=== PATIENT | female | born 1965 | race American Indian/Alaskan Native ===

== ENCOUNTER 2019-08-09 15:41 | Inpatient (IN) | payer MEDICARE, OTHER ==
--- NOTE | 2019-08-09 16:54 | Emergency Department Report ---
ED General Adult HPI - General Chief complaint: Recheck/Abnormal Lab/Rx Stated complaint: ABNORMAL LABS Time Seen by Provider: 08/09/19 16:51 Source: EMS, RN notes reviewed Mode of arrival: Stretcher Limitations: No Limitations - History of Present Illness Initial comments: 54-year-old female with a history of depression and recent admission to [facility] for suicidal ideation presents after patient reportedly had a possible fall and seizure while at [facility] at 11 AM. Per documentation patient was given Ativan while at that facility. According to sitter patient has been refusing vitals as well as any type of lab work and medication while at [facility]. Patient was initially admitted at [facility] after patient was found unresponsive and began to try to attempt suicide while in the ER. Patient currently denies any suicidal or homicidal ideation. Patient also denies any auditory hallucinations at current time. - Related Data Allergies Allergy/AdvReac Type Severity Reaction Status Date / Time No Known Allergies Allergy Verified 08/09/19 16:40 ED Review of Systems ROS: Stated complaint: ABNORMAL LABS Other details as noted in HPI Constitutional: denies: chills, fever Eyes: denies: eye pain, eye discharge, vision change ENT: denies: ear pain, throat pain Respiratory: denies: cough, shortness of breath, wheezing Cardiovascular: denies: chest pain, palpitations Endocrine: no symptoms reported Gastrointestinal: denies: abdominal pain, nausea, diarrhea Genitourinary: denies: urgency, dysuria, discharge Musculoskeletal: denies: back pain, joint swelling, arthralgia Skin: denies: rash, lesions Neurological: denies: headache, weakness, paresthesias Psychiatric: denies: anxiety, depression Hematological/Lymphatic: denies: easy bleeding, easy bruising ED Past Medical Hx - Past Medical History Previous Medical History?: Yes Hx Hypertension: Yes Hx Seizures: Yes Hx Psychiatric Treatment: Yes (bipolar) ED Physical Exam - General Limitations: No Limitations General appearance: alert, other (angry; no acute distress) - Head Head exam: Present: atraumatic, normocephalic, other (abrtasion noted to nasal bridge region) - Eye Eye exam: Present: normal appearance - ENT ENT exam: Present: mucous membranes dry - Neck Neck exam: Present: normal inspection - Respiratory Respiratory exam: Present: normal lung sounds bilaterally. Absent: respiratory distress - Cardiovascular Cardiovascular Exam: Present: regular rate, normal rhythm. Absent: systolic murmur, diastolic murmur, rubs, gallop - GI/Abdominal GI/Abdominal exam: Present: soft, normal bowel sounds - Extremities Exam Extremities exam: Present: normal inspection - Back Exam Back exam: Present: normal inspection - Neurological Exam Neurological exam: Present: alert, oriented X3 - Psychiatric Psychiatric exam: Present: agitated, anxious - Skin Skin exam: Present: warm, dry, intact, normal color. Absent: rash ED Course Vital Signs 08/09/19 18:40 Temperature 98.4 F Pulse Rate 88 Respiratory 16 Rate Blood Pressure 123/80 [Right] O2 Sat by Pulse 95 Oximetry ED Medical Decision Making - Lab Data Result diagrams: 08/09/19 18:37 08/09/19 18:37 - Medical Decision Making Patient has had no subsequent seizure episode while here in emergency department. Patient is ambulatory and appears in no acute distress. Patient is normal left profile normal CT of the head. Patient be discharged to follow-up with PCP and will be discharged to return to [place] accompanied by her sitter as patient is currently on a 1013. - Differential Diagnosis dehydration; anemia; cranial bleed; fracture Critical care attestation.: If time is entered above; I have spent that time in minutes in the direct care of this critically ill patient, excluding procedure time. ED Disposition Clinical Impression: Seizure, Depression Disposition: -01 TO HOME OR SELFCARE Is pt being admited?: No Does the pt Need Aspirin: No Condition: Stable Instructions: Epilepsy (ED) Referrals: PRIMARY MD MAGEN [Primary Care Provider] - 3-5 Days MARIANGEL MAHAJAN MD [Staff Physician] - 3-5 Days Time of Disposition: 21:07 Print Language: HAITIAN
[2019-08-09] MEDS ORDERED: ATIVAN IM STA (17:55)
[2019-08-09] MEDS ORDERED: GEODON IM ONE (17:56)
[2019-08-09] MEDS ORDERED: WATER FOR INJ Sterile (PF) 10 ML ONE (18:20)
[2019-08-09 18:55] LABS: Hematocrit 38.2 % (30.3-42.9); Hemoglobin 12.8 gm/dl (10.1-14.3); Mean Corpuscular HGB Conc 34 % (30-34); Mean Corpuscular Volume 93 fl (79-97); Platelet Count 257 K/mm3 (140-440); Red Blood Count 4.13 M/mm3 (3.65-5.03)
[2019-08-09 19:08] LABS: Alanine Aminotransferase 22 units/L (7-56); Albumin 4.4 g/dL (3.9-5); BUN/Creatinine Ratio 20; Blood Urea Nitrogen 22 mg/dL (7-17); Hemolysis Index 3
--- NOTE | 2019-08-09 19:40 | Cat Scan Report ---
CT head/brain wo con INDICATION / CLINICAL INFORMATION: 54 years Female; seizure. TECHNIQUE: Routine CT head without contrast. All CT scans at this location are performed using CT dos e reduction for ALARA by means of automated exposure control. COMPARISON: None. FINDINGS: BRAIN / INTRACRANIAL CONTENTS: Encephalomalacia seen in the right temporal lobe, which could be relat ed to prior trauma or perhaps old, branch MCA infarct. Otherwise, no acute hemorrhage, mass effect, midline shift, hydrocephalus, or acute, large territoria l infarct. No chronic infarct or focal atrophy. Normal brain volume and ventricular/sulcal size for a ge. No significant white matter abnormality. CRANIOCERVICAL JUNCTION: No significant abnormality. ORBITS: No significant abnormality of visualized orbits. SINUSES / MASTOIDS: No significant abnormality the visualized paranasal sinuses or mastoid air cells. ADDITIONAL FINDINGS: There may be subcutaneous trauma or scarring in the left parietal region. No sig ns of underlying calvarial fracture appreciated. IMPRESSION: 1. No focal mass, hemorrhage, hydrocephalus, or acute, large territorial infarct. Signer Name: Apolinar García MD, III Signed: 08/09/2019 7:35 PM Workstation Name: [id number]
[2019-08-09] MEDS ORDERED: KEPPRA 1,000 MG/NS 0.75% 100ML 1,000 MG/100 ML BAG IV ONE (23:20)
[2019-08-09] MEDS ORDERED: ATIVAN IV ONE (23:20)
--- NOTE | 2019-08-10 00:31 | Cat Scan Report ---
CT head without contrast INDICATION : Headache. TECHNIQUE: Axial imaging performed from the skull apex through the skull base without the use of con trast. All CT examinations performed at this facility utilize dose modulation, iterative reconstruct ion or weight-based dosing, when appropriate, to reduce radiation dose to as low as reasonably achiev able. COMPARISON: None FINDINGS: No acute intracranial hemorrhage is identified. There is prominent encephalomalacia involv ing the right temporal lobe and the right MCA distribution. The ventricles are normal in size without evidence of hydrocephalus. No extra-axial collection identified. The orbits are unremarkable. No par anasal sinus collection. IMPRESSION: No acute intracranial hemorrhage. Prominent encephalomalacia identified involving the rig ht temporal lobe, likely chronic. Signer Name: Guillermo Nicole MD Signed: 08/10/2019 12:27 AM Workstation Name: [id number]
[2019-08-10] MEDS ORDERED: TYLENOL PO PRN (01:10)
[2019-08-10] MEDS ORDERED: ZOFRAN IV PRN (01:10)
[2019-08-10] MEDS ORDERED: SODIUM CHLORIDE FLUSH SYRINGE 10 ML IV PRN (01:10)
--- NOTE | 2019-08-10 01:15 | History and Physical Report ---
History of Present Illness Date of examination: 08/10/19 History of present illness: 54 year old woman with a history of bipolar was admitted to [facility] for suicide ideation. She was sent here to the emergency room because she had a seizure, abrasion on the forehead, 2 mg IM Ativan was given. She was set to be discharg ed from the emergency room when she had another seizure. She stated that she has been on Ativan and Xanax for insomnia which has been continued while at [facility]. Also state that she is been on phenobarbital for years and this was discontinued in the summer, started on phenobarbital for insomnia eview Of Systems: Constitutional: no weight loss, fever, chills Ears, eyes, nose, mouth and throat: no nasal congestion, no nasal discharge, no sinus pressure, blurry vision, diplopia Neck: No neck pain or rigidity. Cardiovascular: No palpitations, chest pain Respiratory: No shortness of breath, cough Gastrointestinal: No hematochezia, abdominal pain Genitourinary : no dysuria, frequency , hematuria Musculoskeletal: no muscle ache , joint pain Integumentary: no rash, no pruritis Neurological: no parathesias, focal weakness Endocrine: no cold or heat intolerance, no polyuria or polydipsia Hematologic/Lymphatic: no easy bruising, no easy bleeding, no gland swelling Allergic/Immunologic: no urticaria, no angioedema. PAST MEDICAL HISTORY: bipolar PAST SURGICAL HISTORY:None FAMILY HISTORY:hypertension, diabetes SOCIAL HISTORY: 4 cigarettes a day, no drugs, alcohol Medications and Allergies Allergies Allergy/AdvReac Type Severity Reaction Status Date / Time No Known Allergies Allergy Verified 08/09/19 16:40 Active Meds: Active Medications Acetaminophen (Tylenol) 650 mg PO Q4H PRN PRN Reason: Pain MILD(1-3)/Fever >100.5/[place] Enoxaparin Sodium (Lovenox) 30 mg SUB-Q QDAY JAMA Lorazepam (Ativan) 2 mg IV Q4H PRN PRN Reason: Seizures Ondansetron HCl (Zofran) 4 mg IV Q8H PRN PRN Reason: Nausea And Vomiting Sodium Chloride (Sodium Chloride Flush Syringe 10 Ml) 10 ml IV BID JAMA Sodium Chloride (Sodium Chloride Flush Syringe 10 Ml) 10 ml IV PRN PRN PRN Reason: LINE FLUSH Zolpidem Tartrate (Ambien) 10 mg PO ONCE ONE Stop: 10/19/19 01:14 Exam - Physical Exam Narrative exam: General Apperance: The patient sitting in bed no acute distress HEENT: Normocephalic, atraumatic. Pupils equally round and reactive to light, extraocular movement intact, and no sclericterus or JVD or thyromegaly or nodule. Neck supple, no carotid bruit, mucous membranes moist, no exudate or e rythema Heart: S1-S2, regular is rhythm Lungs: Clear to auscultation bilaterally, breathing comfortable Abdomen: Positive bowel sounds, soft, nontender, nondistended, no organomegaly Extremities: No edema cyanosis clubbing Skin: no rash, nodule, warm and dry Neuro:CN 2 -12 intact, motor/sensory intact, speech is fluent - Constitutional Vitals: Temp Pulse Resp BP Pulse Ox 98.1 F 84 12 116/60 100 08/09/19 23:49 08/09/19 23:49 08/09/19 23:49 08/09/19 23:49 08/09/19 23:49 Results - Labs CBC & Chem 7: 08/10/19 05:08 08/10/19 05:08 Labs: Abnormal lab results 08/09/19 08/09/19 08/09/19 Range/Units 18:37 18:37 18:37 Chloride 97.7 L (98-107) mmol/L BUN 22 H (7-17) mg/dL Glucose 108 H (65-100) mg/dL Total Creatine Kinase 607 H (30-135) units/L Salicylates < 0.3 L (2.8-20.0) mg/dL Acetaminophen (10.0-30.0) ug/mL 08/09/19 Range/Units 18:37 Chloride (98-107) mmol/L BUN (7-17) mg/dL Glucose (65-100) mg/dL Total Creatine Kinase (30-135) units/L Salicylates (2.8-20.0) mg/dL Acetaminophen < 5.0 L (10.0-30.0) ug/mL - Imaging and Cardiology CT Scan - head: report reviewed Assessment and Plan Assessment Seizure, new onset Bipolar Plan Admit to medicine Start IV Ativan as needed for seizure, status post Keppra Consult neurology, DVT prophylaxis 1013, place with sitter
[2019-08-10] MEDS ORDERED: AMBIEN PO ONE (01:33)
[2019-08-10 05:37] LABS: Basophils % (Auto) 0.4 % (0.0-1.8); Eosinophils # (Auto) 0.1 K/mm3 (0.0-0.4); Eosinophils % (Auto) 1.9 % (0.0-4.3); Hematocrit 35.1 % (30.3-42.9); Hemoglobin 11.8 gm/dl (10.1-14.3); Lymphocytes # (Auto) 1.7 K/mm3 (1.2-5.4); Mean Corpuscular HGB Conc 34 % (30-34); Mean Corpuscular Volume 93 fl (79-97); Monocytes # (Auto) 0.8 K/mm3 (0.0-0.8); Monocytes % (Auto) 14.5 % (0.0-7.3); Platelet Count 236 K/mm3 (140-440); Red Blood Count 3.79 M/mm3 (3.65-5.03); Red Cell Distribution Width 13.9 % (13.2-15.2)
[2019-08-10 05:45] LABS: BUN/Creatinine Ratio 19; Blood Urea Nitrogen 15 mg/dL (7-17); Calcium 8.8 mg/dL (8.4-10.2); Hemolysis Index 11
[2019-08-10] MEDS ORDERED: ATIVAN PO ONE (06:36)
--- NOTE | 2019-08-10 10:33 | Consultation ---
History of Present Illness Consult date: 08/10/19 History of present illness: patient seen for neurology clearance and she is seizure free - and I have reviewed her lab's and the kidney function and potassium are normal she has been on phenobarbital and this was non complaint to and the basis of the seizure... she has small contussion on the left david and left forehead she otherwise has normal exam recommend OK to go back to [facility] Medications and Allergies Allergies Allergy/AdvReac Type Severity Reaction Status Date / Time No Known Allergies Allergy Verified 08/09/19 16:40 Active Meds: Active Medications Acetaminophen (Tylenol) 650 mg PO Q4H PRN PRN Reason: Pain MILD(1-3)/Fever >100.5/[place] Last Admin: 08/10/19 04:57 Dose: 650 mg Documented by: Enoxaparin Sodium (Lovenox) 40 mg SUB-Q QDAY JAMA Levetiracetam 1,000 mg/ (Dextrose) 110 mls @ 400 mls/hr IV Q12H JAMA Lorazepam (Ativan) 2 mg IV Q4H PRN PRN Reason: Seizures Ondansetron HCl (Zofran) 4 mg IV Q8H PRN PRN Reason: Nausea And Vomiting Sodium Chloride (Sodium Chloride Flush Syringe 10 Ml) 10 ml IV BID JAMA Sodium Chloride (Sodium Chloride Flush Syringe 10 Ml) 10 ml IV PRN PRN PRN Reason: LINE FLUSH Physical Examination - Vital Signs Vital Signs: Vital Signs Temp Pulse Resp BP Pulse Ox 98.4 F 88 16 123/80 95 08/09/19 18:40 08/09/19 18:40 08/09/19 18:40 08/09/19 18:40 08/09/19 18:40 Results - Laboratory Findings CBC and BMP: 08/10/19 05:08 08/10/19 05:08 Abnormal Lab Findings: Abnormal Labs 08/09/19 08/09/19 08/09/19 18:37 18:37 18:37 [place] % (Auto) Chloride 97.7 L BUN 22 H Glucose 108 H Total Creatine Kinase 607 H Salicylates < 0.3 L Acetaminophen 08/09/19 08/10/19 08/10/19 18:37 05:08 05:08 [place] % (Auto) 14.5 H Chloride BUN Glucose 109 H Total Creatine Kinase Salicylates Acetaminophen < 5.0 L
[2019-08-10] MEDS: ENOXAPARIN SUB-Q SCH (10:58)
[2019-08-10] MEDS: SODIUM CHLORIDE FLUSH SYRINGE 10 ML IV SCH ×2 (10:59→22:35)
[2019-08-10] MEDS: KEPPRA 1,000 MG in D5W 100 ML IV SCH (11:02)
[2019-08-10] MEDS ORDERED: LIBRIUM PO PRN (11:06)
--- NOTE | 2019-08-10 11:49 | Event Note ---
54-year-old woman with history of mental health disorder, who was being treated at [place]. Presented with seizure which was due to noncompliance with seizure medications. She received Ativan after which seizure broke. She was started on Keppra. She received neurology consult. Patient continued to express how depressed and angry she is. -All her home medications were started. She was given Ativan as needed for anxiety. Case management notified that patient may be discharged back to [place] if they will accept her. Waiting to hear back from [facility] about discharge plan.
[2019-08-10] MEDS ORDERED: XANAX PO PRN (12:35)
[2019-08-10] MEDS ORDERED: AMBIEN PO PRN (15:41)
[2019-08-10] MEDS: NORCO 5/325 PO PRN (17:30)
[2019-08-10] MEDS ORDERED: XANAX ONE (19:17)
[2019-08-10] MEDS ORDERED: CATAPRES ONE (19:17)
[2019-08-10] MEDS: XANAX PO SCH ×2 (19:18→22:34)
[2019-08-10] MEDS: CATAPRES PO SCH ×2 (19:19→22:36)
[2019-08-10] MEDS ORDERED: ATIVAN IV PRN (22:06)
--- NOTE | 2019-08-10 22:23 | Consultation ---
HISTORY OF PRESENT ILLNESS: This is a 54-year-old black female who is seen at [facility]. She is in room 356. She was transferred from another hospital, which was [facility] where she was assessed for having generalized seizure. ER documentation is provided on that issue. I have reviewed over both of her CAT scans of the head, both bony and soft tissue areas and she has an old area of encephalomalacia in the right temporal lobe, which is chronic and in the subcortical and appears to be across the base of the right temporal lobe and is visualized and has a very symmetrical appearance. The overlying skull is normal, indicating this is not the basis of this to not require surgery and comparing the right to the left side, this has a very chronic appearance. This does not appear to be related to a prior stroke. The bony structures in the frontal area are normal. The patient's history is an interesting one in which she was apparently at [facility] and likely had a seizure, but this was related to the fact that she was not compliant with her medication. After presenting to the hospital, she apparently had a CPK of 607 related to the trauma. The toxicology screen did not show any illicit drugs. The blood alcohol level was normal. Salicylate and acetaminophen were both low. The patient's hematocrit was 38. 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 I will make a comment that obviously now that her creatinine is 1.1 and so this was an old issue. Emergency Room note was reviewed and the question of whether she had missed her doses of Keppra and Ativan and a CT scan of the head was unremarkable. She was subsequently admitted and is now currently being observed. PHYSICAL EXAMINATION: Her blood pressure presently is 123/80, pulse rate 80, respirations 18. She is fully alert and oriented. Speech is clear, but she has altered mental process. She thinks today is Monday when it is actually Monday. She follows simple commands. She is up and ambulating. She has a small abrasion on her left knee. Cranial nerves are otherwise intact. IMPRESSION: This patient's history is interesting in that she did not reveal the basis of the old area of encephalomalacia in the left temporal lobe. Clearly, this is probably the basis for seizures. She sees Dr. Yvon Acosta who is an cocoa mill operator at [facility]. She according to her history takes phenobarbital, although from reviewing the Emergency Room note that information was not provided. At this point, I think the patient's neurological examination is otherwise normal. I do not find any focal weakness. She is up and ambulating well. Her thought content is fairly bizarre. She does not have responsible green party with her. Clearly if she was taken to [facility] on 1012, she would be referred back there at this point. I would continue her Keppra therapy and phenobarbital and she certainly does have a legitimate reason for seizures given the fact this is older if scarring in the temporal lobe. Follow up with Dr. Yvon Acosta. I will speak to him in his office on Monday as I am personally familiar with him. IMPRESSION: Seizure and may go back to the [facility]. We follow up at that point. JOB# [id number] FIDE/ROSS
[2019-08-10] MEDS: TOPAMAX PO SCH (22:32)
[2019-08-10] MEDS: AMBIEN PO PRN (22:35)
[2019-08-11] MEDS: KEPPRA 1,000 MG in D5W 100 ML IV SCH (00:06)
[2019-08-11] MEDS: ATIVAN IV PRN ×4 (03:08→14:59)
[2019-08-11] MEDS: XANAX PO SCH ×2 (09:31→21:17)
[2019-08-11] MEDS: TOPAMAX PO SCH ×2 (09:32→21:17)
[2019-08-11] MEDS: SODIUM CHLORIDE FLUSH SYRINGE 10 ML IV SCH ×2 (09:32→21:23)
[2019-08-11] MEDS: DEMADEX PO SCH (09:34)
[2019-08-11] MEDS: COZAAR PO SCH (09:36)
[2019-08-11] MEDS: HCTZ PO SCH (09:37)
[2019-08-11] MEDS: CORGARD PO SCH (09:38)
[2019-08-11] MEDS: ENOXAPARIN SUB-Q SCH (09:39)
[2019-08-11] MEDS ORDERED: HYDROCHLOROTHIAZIDE PO SCH (10:00)
[2019-08-11] MEDS ORDERED: TELMISARTAN PO SCH (10:00)
--- NOTE | 2019-08-11 10:49 | Progress Note ---
Assessment and Plan Assessment and plan: 54-year-old woman with history of bipolar disorder. Who was brought to the hospital after she had a witnessed seizure at [facility]. Seizure was due to noncompliance with antiseizure medications. Patient received Ativan and antiepileptic drugs after which seizures seized. She reports feeling very depressed and anxious. She has been counseled on improved adherence to her medications., Preventative health counseling performed for 17 minutes She was seen by neurology who recommended compliance with seizure medications. She has not expressed any suicidal ideation. She states that if she goes back to [place] she will catch a case. Therefore patient has been on 1013 Diagnosis Status epilepticus Severe depression, bipolar and anxiety which are uncontrolled. DVT prophylaxis with Lovenox She is medically optimized for transfer to [facility] facility History Interval history: Nursing staff states that she has been very unhappy she is been crying and screaming Review of systems Constitutional: No fevers, no malaise, no joint pains CVS: No chest pain, no orthopnea, no pedal edema GI: No abdominal pain, no diarrhea, no vomiting, no constipation Respiratory: No shortness of breath, no wheezing, no coughing Hospitalist Physical - Physical exam Narrative exam: General.: Appears well, no distress, nontoxic HEENT: Moist mucous membranes, extraocular muscles intact, no lymphadenopathy Neck: supple Cardiac: S1-S2 heard Lungs: clear to auscultation bilaterally Abdomen: soft , nontender, nondistended, bowel sounds positive Extremities: no edema clubbing or cyanosis Skin: She has some bruises on her lower extremities and one bruise on her nose, stated that they are from the trauma from the seizure Neurologic: no gross focal deficits Psych: Patient is sad, screaming tearful, inappropriate behavior - Constitutional Vitals: Temp Pulse Resp BP Pulse Ox 97.8 F 96 H 17 117/77 98 08/11/19 04:52 08/11/19 09:38 08/11/19 04:52 08/11/19 09:38 08/10/19 18:42 Results - Labs CBC & Chem 7: 08/10/19 05:08 08/10/19 05:08 Labs: Laboratory Last Values WBC 5.5 K/mm3 (4.5-11.0) 08/10/19 05:08 RBC 3.79 M/mm3 (3.65-5.03) 08/10/19 05:08 Hgb 11.8 gm/dl (10.1-14.3) 08/10/19 05:08 Hct 35.1 % (30.3-42.9) 08/10/19 05:08 MCV 93 fl (79-97) 08/10/19 05:08 MCH 31 pg (28-32) 08/10/19 05:08 MCHC 34 % (30-34) 08/10/19 05:08 RDW 13.9 % (13.2-15.2) 08/10/19 05:08 Plt Count 236 K/mm3 (140-440) 08/10/19 05:08 Lymph % (Auto) 32.0 % (13.4-35.0) 08/10/19 05:08 [place] % (Auto) 14.5 % (0.0-7.3) H 08/10/19 05:08 Eos % (Auto) 1.9 % (0.0-4.3) 08/10/19 05:08 Baso % (Auto) 0.4 % (0.0-1.8) 08/10/19 05:08 Lymph # 1.7 K/mm3 (1.2-5.4) 08/10/19 05:08 [place] # 0.8 K/mm3 (0.0-0.8) 08/10/19 05:08 Eos # 0.1 K/mm3 (0.0-0.4) 08/10/19 05:08 Baso # 0.0 K/mm3 (0.0-0.1) 08/10/19 05:08 Seg Neutrophils % 51.2 % (40.0-70.0) 08/10/19 05:08 Seg Neutrophils # 2.8 K/mm3 (1.8-7.7) 08/10/19 05:08 Sodium 138 mmol/L (137-145) 08/10/19 05:08 Potassium 3.6 mmol/L (3.6-5.0) 08/10/19 05:08 Chloride 100.9 mmol/L (98-107) 08/10/19 05:08 Carbon Dioxide 25 mmol/L (22-30) 08/10/19 05:08 Anion Gap 16 mmol/L 08/10/19 05:08 BUN 15 mg/dL (7-17) 08/10/19 05:08 Creatinine 0.8 mg/dL (0.7-1.2) 08/10/19 05:08 Estimated GFR > 60 ml/min 08/10/19 05:08 BUN/Creatinine Ratio 19 % 08/10/19 05:08 Glucose 109 mg/dL (65-100) H 08/10/19 05:08 Calcium 8.8 mg/dL (8.4-10.2) 08/10/19 05:08 Magnesium 2.20 mg/dL (1.7-2.3) 08/09/19 18:37 Magnesium 2.30 mg/dL (1.7-2.3) 08/09/19 18:37 Total Bilirubin < 0.20 mg/dL (0.1-1.2) 08/09/19 18:37 AST 31 units/L (5-40) 08/09/19 18:37 ALT 22 units/L (7-56) 08/09/19 18:37 Alkaline Phosphatase 100 units/L (35-129) 08/09/19 18:37 Total Creatine Kinase 607 units/L (30-135) H 08/09/19 18:37 Total Protein 7.9 g/dL (6.3-8.2) 08/09/19 18:37 Albumin 4.4 g/dL (3.9-5) 08/09/19 18:37 Albumin/Globulin Ratio 1.3 % 08/09/19 18:37 Salicylates < 0.3 mg/dL (2.8-20.0) L 08/09/19 18:37 Acetaminophen < 5.0 ug/mL (10.0-30.0) L 08/09/19 18:37 Plasma/Serum Alcohol < 0.01 % (0-0.07) 08/09/19 18:37 Active Medications - Current Medications Current Medications: Generic Name Dose Route Start Last Admin Trade Name Freq PRN Reason Stop Dose Admin Acetaminophen 650 mg 08/10/19 01:10 08/10/19 04:57 Tylenol PO 650 mg Q4H PRN Administration Pain MILD(1-3)/Fever >100.5/[place] Acetaminophen/Hydrocodone Bitart 1 each 08/10/19 17:36 08/10/19 17:30 [place] 5/325 PO 1 each Q6H PRN Administration Pain, Moderate (4-6) Alprazolam 2 mg 08/10/19 22:00 08/11/19 09:31 Xanax PO 2 mg BID JAMA Administration Clonidine HCl 0.1 mg 08/10/19 22:00 08/10/19 22:36 Catapres PO Not Given QHS JAMA Enoxaparin Sodium 40 mg 08/10/19 10:00 08/11/19 09:39 Lovenox SUB-Q Not Given QDAY JAMA Hydrochlorothiazide 12.5 mg 08/11/19 10:00 08/11/19 09:37 Hctz PO 12.5 mg QDAY JAMA Administration Lorazepam 2 mg 08/10/19 01:12 08/11/19 07:08 Ativan IV 2 mg Q4H PRN Administration Seizures / AGITATION Losartan Potassium 100 mg 08/11/19 10:00 08/11/19 09:36 Cozaar PO 100 mg QDAY JAMA Administration Nadolol 20 mg 08/11/19 10:00 08/11/19 09:38 Corgard PO 20 mg QDAY JAMA Administration Ondansetron HCl 4 mg 08/10/19 01:10 Zofran IV Q8H PRN Nausea And Vomiting Phenobarbital 64.8 mg 08/10/19 22:00 08/11/19 09:31 Phenobarbital PO 64.8 mg BID JAMA Administration Sodium Chloride 10 ml 08/10/19 10:00 08/11/19 09:32 Sodium Chloride Flush Syringe 10 Ml IV 10 ml BID JAMA Administration Sodium Chloride 10 ml 08/10/19 01:10 Sodium Chloride Flush Syringe 10 Ml IV PRN PRN LINE FLUSH Topiramate 100 mg 08/10/19 22:00 08/11/19 09:32 Topamax PO 100 mg Q12HR JAMA Administration Torsemide 5 mg 08/11/19 10:00 08/11/19 09:34 Demadex PO 5 mg QDAY JAMA Administration Zolpidem Tartrate 10 mg 08/10/19 16:03 08/10/19 22:35 Ambien PO 10 mg QHS PRN Administration Insomnia
--- NOTE | 2019-08-11 11:23 | Consultation ---
History of Present Illness - Reason for Consult Consult date: 08/11/19 Reason for consult: Mental Health Evaluation Requesting physician: WALT BONILLA - Chief Complaint Chief complaint: "Who's the MILK TANKER DRIVER of the hospital" - History of Present Psychiatric Illness 54 y.o. AA female who presented to the ER from [facility] for seizure activity. Today the patient was irritable and delusional during the assessment. Per the staff, the patient tapped paper to her room door and wrote all types of questions directed at the staff and the hospital MILK TANKER DRIVER that I viewed. Her reason for this behavior was not logical. She was asked several times why she was [place] [facility] [place] [facility], she stated that she got into a argument with staff at [facility]. Throughout the interview, she had to be redirected several times to keep her on topic. She mentioned something about being awarded [phone] 000 dollar law suit. She is adamant that this money will be awarded to her soon. She denies denies SI/HI's and AVH's. She denies recreational drug use and alcohol consumption (etoh). Medications and Allergies Allergies Allergy/AdvReac Type Severity Reaction Status Date / Time No Known Allergies Allergy Verified 08/09/19 16:40 Home Medications Medication Instructions Recorded Confirmed Last Taken Type ALPRAZolam [Xanax TAB] 2 mg PO BID 08/10/19 08/10/19 Unknown History Nadolol [Corgard] 20 mg PO QDAY 08/10/19 08/10/19 Unknown History PHENobarbital [Phenobarbital] 64.8 mg PO BID 08/10/19 08/10/19 Unknown History Telmisartan/Hydrochlorothiazid 80 mg PO QDAY 08/10/19 08/10/19 Unknown History [Telmisartan-Hctz 80-12.5 mg Tb] Topiramate [Topamax] 100 mg PO BID 08/10/19 08/10/19 Unknown History Torsemide [Demadex] 5 mg PO DAILY 08/10/19 08/10/19 Unknown History Zolpidem [Ambien] 12.5 mg PO QHS 08/10/19 08/10/19 Unknown History cloNIDine [Catapres] 0.1 mg PO QHS 08/10/19 08/10/19 Unknown History levETIRAcetam [Keppra TAB] 1,000 mg PO BID #60 tab 10/19/19 Unknown Rx Desvenlafaxine Succinate [Pristiq] 08/11/19 Unknown History Simvastatin 08/11/19 Unknown History Active Meds: Active Medications Acetaminophen (Tylenol) 650 mg PO Q4H PRN PRN Reason: Pain MILD(1-3)/Fever >100.5/[place] Last Admin: 08/10/19 04:57 Dose: 650 mg Documented by: Acetaminophen/Hydrocodone Bitart ([place] 5/325) 1 each PO Q6H PRN PRN Reason: Pain, Moderate (4-6) Last Admin: 08/10/19 17:30 Dose: 1 each Documented by: Alprazolam (Xanax) 2 mg PO BID [facility] Last Admin: 08/11/19 09:31 Dose: 2 mg Documented by: Clonidine HCl (Catapres) 0.1 mg PO QHS [facility] Last Admin: 08/10/19 22:36 Dose: Not Given Documented by: Enoxaparin Sodium (Lovenox) 40 mg SUB-Q QDAY [facility] Last Admin: 08/11/19 09:39 Dose: Not Given Documented by: Hydrochlorothiazide (Hctz) 12.5 mg PO QDAY [facility] Last Admin: 08/11/19 09:37 Dose: 12.5 mg Documented by: Lorazepam (Ativan) 2 mg IV Q4H PRN PRN Reason: Seizures / AGITATION Last Admin: 08/11/19 07:08 Dose: 2 mg Documented by: Losartan Potassium (Cozaar) 100 mg PO QDAY [facility] Last Admin: 08/11/19 09:36 Dose: 100 mg Documented by: Nadolol (Corgard) 20 mg PO QDAY [facility] Last Admin: 08/11/19 09:38 Dose: 20 mg Documented by: Ondansetron HCl (Zofran) 4 mg IV Q8H PRN PRN Reason: Nausea And Vomiting Phenobarbital (Phenobarbital) 64.8 mg PO BID [facility] Last Admin: 08/11/19 09:31 Dose: 64.8 mg Documented by: Sodium Chloride (Sodium Chloride Flush Syringe 10 Ml) 10 ml IV BID [facility] Last Admin: 08/11/19 09:32 Dose: 10 ml Documented by: Sodium Chloride (Sodium Chloride Flush Syringe 10 Ml) 10 ml IV PRN PRN PRN Reason: LINE FLUSH Topiramate (Topamax) 100 mg PO Q12HR [facility] Last Admin: 08/11/19 09:32 Dose: 100 mg Documented by: Torsemide (Demadex) 5 mg PO QDAY [facility] Last Admin: 08/11/19 09:34 Dose: 5 mg Documented by: Zolpidem Tartrate (Ambien) 10 mg PO QHS PRN PRN Reason: Insomnia Last Admin: 08/10/19 22:35 Dose: 10 mg Documented by: Past psychiatric history - Past Medical History Past Medical History: hypertension, seizures Past Surgical History: No surgical history - past Psychiatric treatment and history psychiatric treatment history: Hx of Bipolar DO per the patient. Unable to obtain a fam psy hx. - Social History Social history: lives with family Mental Status Exam - Vital signs Last Vital Signs Temp 97.8 F 08/11/19 04:52 Pulse 96 H 08/11/19 09:38 Resp 17 08/11/19 04:52 BP 117/77 08/11/19 09:38 Pulse Ox 98 08/10/19 18:42 - Exam Narrative exam: MSE: Appearance: disheveled, in hospital attire Behavior: regular eye contact Speech: regular rate and loud tone Mood: irritable Affect: congruent to mood Thought Process: circumstantial Thought Content: denies SI/HI's and AVH's, delusional Motor Activity: lying in bed Cognition: A/O x 3 Insight: poor Judgment: poor Results Result Diagrams: 08/10/19 05:08 08/10/19 05:08 All other labs normal. Assessment and Plan Assessment and plan: Impression. Unspecified Mood DO with psy features. Today the patient was irritable and delusional during the assessment. Pending UDS. DDx: Bipolar DO, SCAD Recommendation/Plan: Start Zyprexa 5 mg PO HS for mood/psyhcosis, Attempted to discuss possible metabolic side effects of Zyprexa with the patient. Baseline A1c/Lipid Panel ordered for the AM. Don't administer benzos and narcotic concurrently. Dispo: The patient will be referred to inpatient psy services once medically clear. Staffed with Dr Susu Cisneros.
[2019-08-11] MEDS ORDERED: DESVENLAFAXINE SUCCINATE 100 MG PO SCH (12:45)
[2019-08-11] MEDS: NORCO 5/325 PO PRN (14:44)
[2019-08-11] MEDS: HALDOL IM PRN (17:37)
[2019-08-11] MEDS: AMBIEN PO PRN (21:16)
[2019-08-11] MEDS: CATAPRES PO SCH (21:21)
[2019-08-11] MEDS ORDERED: PRAVACHOL PO SCH (22:00)
[2019-08-11] MEDS ORDERED: NON-FORMULARY (Simvastatin [Simvastatin] 20 MG) PO SCH (22:00)
[2019-08-12 02:07] LABS: Amphetamine Screen,Urine PRESUMPTIVE NEGATIVE; Cannabinoid Screen,Urine PRESUMPTIVE NEGATIVE; Cocaine Screen,Urine PRESUMPTIVE NEGATIVE; Methadone Screen,Urine PRESUMPTIVE NEGATIVE; Opiate Screen,Urine PRESUMPTIVE NEGATIVE
[2019-08-12 02:46] LABS: Benzodiazepines Screen,Urine PRESUMPTIVE POSITIVE
[2019-08-12 05:20] VITALS: BP 91/55
[2019-08-12] MEDS: HALDOL IM PRN (08:17)
[2019-08-12 08:27] LABS: Chol/HDL Ratio 5.68 %
[2019-08-12] MEDS: COZAAR PO SCH (09:59)
[2019-08-12] MEDS: DEMADEX PO SCH (09:59)
[2019-08-12] MEDS: ENOXAPARIN SUB-Q SCH (09:59)
[2019-08-12] MEDS: HCTZ PO SCH (09:59)
[2019-08-12] MEDS: CORGARD PO SCH (09:59)
[2019-08-12] MEDS: SODIUM CHLORIDE FLUSH SYRINGE 10 ML IV SCH (10:00)
[2019-08-12] MEDS: XANAX PO SCH (10:00)
[2019-08-12] MEDS: TOPAMAX PO SCH (10:00)
--- NOTE | 2019-08-12 10:18 | Progress Note ---
Assessment and Plan Assessment and plan: 54-year-old woman with history of bipolar disorder. Who was brought to the hospital after she had a witnessed seizure at [facility]. Seizure was due to noncompliance with antiseizure medications. Patient received Ativan and antiepileptic drugs after which seizures seized. She reports feeling very depressed and anxious. She has been counseled on improved adherence to her medications., Preventative health counseling performed for 17 minutes She was seen by neurology who recommended compliance with seizure medications. She has not expressed any suicidal ideation. She states that she will catch a case if she does not get what she wants. Therefore patient has been on 1013 -Patient remains paranoid delusional and aggressive. 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 She is convinced the nurses are trying to poison her and her sneaking pills into her drinks, and giving her the wrong pill in order to drug her Diagnosis Status epilepticus Severe depression, bipolar and anxiety which are uncontrolled. DVT prophylaxis with Lovenox She [facility] History Interval history: Nursing staff states that she has been very unhappy she is been crying and screaming She has been paranoid and delusional. States that she is a spy who learn how to speaks Farsi and 15 minutes Review of systems Constitutional: No fevers, no malaise, no joint pains CVS: No chest pain, no orthopnea, no pedal edema GI: No abdominal pain, no diarrhea, no vomiting, no constipation Respiratory: No shortness of breath, no wheezing, no coughing Hospitalist Physical - Physical exam Narrative exam: General.: Appears well, no distress, nontoxic HEENT: Moist mucous membranes, extraocular muscles intact, no lymphadenopathy Neck: supple Cardiac: S1-S2 heard Lungs: clear to auscultation bilaterally Abdomen: soft , nontender, nondistended, bowel sounds positive Extremities: no edema clubbing or cyanosis Skin: She has some bruises on her lower extremities and one bruise on her nose, stated that they are from the trauma from the seizure Neurologic: no gross focal deficits Psych: Patient is sad, screaming tearful, inappropriate behavior, she is delusional and paranoid - Constitutional Vitals: Temp Pulse Resp BP Pulse Ox 97.5 F L 67 20 91/55 94 08/12/19 05:15 08/12/19 05:15 08/12/19 05:15 08/12/19 05:15 08/12/19 05:15 Results - Labs CBC & Chem 7: 08/10/19 05:08 08/10/19 05:08 Labs: Laboratory Last Values WBC 5.5 K/mm3 (4.5-11.0) 08/10/19 05:08 RBC 3.79 M/mm3 (3.65-5.03) 08/10/19 05:08 Hgb 11.8 gm/dl (10.1-14.3) 08/10/19 05:08 Hct 35.1 % (30.3-42.9) 08/10/19 05:08 MCV 93 fl (79-97) 08/10/19 05:08 MCH 31 pg (28-32) 08/10/19 05:08 MCHC 34 % (30-34) 08/10/19 05:08 RDW 13.9 % (13.2-15.2) 08/10/19 05:08 Plt Count 236 K/mm3 (140-440) 08/10/19 05:08 Lymph % (Auto) 32.0 % (13.4-35.0) 08/10/19 05:08 [place] % (Auto) 14.5 % (0.0-7.3) H 08/10/19 05:08 Eos % (Auto) 1.9 % (0.0-4.3) 08/10/19 05:08 Baso % (Auto) 0.4 % (0.0-1.8) 08/10/19 05:08 Lymph # 1.7 K/mm3 (1.2-5.4) 08/10/19 05:08 [place] # 0.8 K/mm3 (0.0-0.8) 08/10/19 05:08 Eos # 0.1 K/mm3 (0.0-0.4) 08/10/19 05:08 Baso # 0.0 K/mm3 (0.0-0.1) 08/10/19 05:08 Seg Neutrophils % 51.2 % (40.0-70.0) 08/10/19 05:08 Seg Neutrophils # 2.8 K/mm3 (1.8-7.7) 08/10/19 05:08 Sodium 138 mmol/L (137-145) 08/10/19 05:08 Potassium 3.6 mmol/L (3.6-5.0) 08/10/19 05:08 Chloride 100.9 mmol/L (98-107) 08/10/19 05:08 Carbon Dioxide 25 mmol/L (22-30) 08/10/19 05:08 Anion Gap 16 mmol/L 08/10/19 05:08 BUN 15 mg/dL (7-17) 08/10/19 05:08 Creatinine 0.8 mg/dL (0.7-1.2) 08/10/19 05:08 Estimated GFR > 60 ml/min 08/10/19 05:08 BUN/Creatinine Ratio 19 % 08/10/19 05:08 Glucose 109 mg/dL (65-100) H 08/10/19 05:08 Hemoglobin A1c 5.8 % (4-6) 08/12/19 08:04 Calcium 8.8 mg/dL (8.4-10.2) 08/10/19 05:08 Magnesium 2.20 mg/dL (1.7-2.3) 08/09/19 18:37 Magnesium 2.30 mg/dL (1.7-2.3) 08/09/19 18:37 Total Bilirubin < 0.20 mg/dL (0.1-1.2) 08/09/19 18:37 AST 31 units/L (5-40) 08/09/19 18:37 ALT 22 units/L (7-56) 08/09/19 18:37 Alkaline Phosphatase 100 units/L (35-129) 08/09/19 18:37 Total Creatine Kinase 607 units/L (30-135) H 08/09/19 18:37 Total Protein 7.9 g/dL (6.3-8.2) 08/09/19 18:37 Albumin 4.4 g/dL (3.9-5) 08/09/19 18:37 Albumin/Globulin Ratio 1.3 % 08/09/19 18:37 Triglycerides 311 mg/dL (2-149) H 08/12/19 08:04 Cholesterol 216 mg/dL (50-199) H 08/12/19 08:04 LDL Cholesterol Direct 139 mg/dL (50-130) H 08/12/19 08:04 HDL Cholesterol 38 mg/dL (40-59) L 08/12/19 08:04 Cholesterol/HDL Ratio 5.68 % 08/12/19 08:04 Salicylates < 0.3 mg/dL (2.8-20.0) L 08/09/19 18:37 Urine Opiates Screen Presumptive negative 08/11/19 01:30 Urine Methadone Screen Presumptive negative 08/11/19 01:30 Acetaminophen < 5.0 ug/mL (10.0-30.0) L 08/09/19 18:37 Ur Barbiturates Screen Presumptive positive 08/11/19 01:30 Ur Phencyclidine Scrn Presumptive negative 08/11/19 01:30 Ur Amphetamines Screen Presumptive negative 08/11/19 01:30 U Benzodiazepines Scrn Presumptive positive 08/11/19 01:30 Urine Cocaine Screen Presumptive negative 08/11/19 01:30 U Marijuana (THC) Screen Presumptive negative 08/11/19 01:30 Drugs of Abuse Note Disclamer 08/11/19 01:30 Plasma/Serum Alcohol < 0.01 % (0-0.07) 08/09/19 18:37 Active Medications - Current Medications Current Medications: Generic Name Dose Route Start Last Admin Trade Name Freq PRN Reason Stop Dose Admin Acetaminophen 650 mg 08/10/19 01:10 08/10/19 04:57 Tylenol PO 650 mg Q4H PRN Administration Pain MILD(1-3)/Fever >100.5/[place] Acetaminophen/Hydrocodone Bitart 1 each 08/10/19 17:36 08/11/19 14:44 [place] 5/325 PO 1 each Q6H PRN Administration Pain, Moderate (4-6) Alprazolam 2 mg 08/10/19 22:00 08/12/19 10:00 Xanax PO Not Given BID JAMA Atorvastatin Calcium 40 mg 08/12/19 22:00 Lipitor PO QHS JAMA Clonidine HCl 0.1 mg 08/10/19 22:00 08/11/19 21:21 Catapres PO 0.1 mg QHS JAMA Administration Enoxaparin Sodium 40 mg 08/10/19 10:00 08/12/19 09:59 Lovenox SUB-Q Not Given QDAY JAMA Haloperidol Lactate 5 mg 08/11/19 15:08 08/12/19 08:17 Haldol IM 5 mg Q6H PRN Administration Agitation Hydrochlorothiazide 12.5 mg 08/11/19 10:00 08/12/19 09:59 Hctz PO Not Given QDAY [facility] Lorazepam 2 mg 08/10/19 01:12 08/11/19 14:59 Ativan IV 2 mg Q4H PRN Administration Seizures / AGITATION Losartan Potassium 100 mg 08/11/19 10:00 08/12/19 09:59 Cozaar PO Not Given QDAY [facility] Miscellaneous Medication 100 mg 08/11/19 12:45 Desvenlafaxine Succinate [Pristiq] PO DAILY [facility] Nadolol 20 mg 08/11/19 10:00 08/12/19 09:59 Corgard PO Not Given QDAY [facility] Olanzapine 5 mg 08/11/19 22:00 08/11/19 21:20 Zyprexa PO 5 mg HS JAMA Administration Ondansetron HCl 4 mg 08/10/19 01:10 Zofran IV Q8H PRN Nausea And Vomiting Phenobarbital 64.8 mg 08/10/19 22:00 08/12/19 09:59 Phenobarbital PO Not Given BID JAMA Sodium Chloride 10 ml 08/10/19 10:00 08/12/19 10:00 Sodium Chloride Flush Syringe 10 Ml IV Not Given BID JAMA Sodium Chloride 10 ml 08/10/19 01:10 Sodium Chloride Flush Syringe 10 Ml IV PRN PRN LINE FLUSH Topiramate 100 mg 08/10/19 22:00 08/12/19 10:00 Topamax PO Not Given Q12HR [facility] Torsemide 5 mg 08/11/19 10:00 08/12/19 09:59 Demadex PO Not Given QDAY [facility] Zolpidem Tartrate 10 mg 08/10/19 16:03 08/11/19 21:16 Ambien PO 10 mg QHS PRN Administration Insomnia
--- NOTE | 2019-08-12 12:13 | Progress Note ---
Subjective - Reason for Consult Consult date: 08/12/19 Reason for consult: Psychiatry Follow-up - Chief Complaint Chief complaint: "I have to get out of here" 54 y.o. AA female who presented to the ER from [facility] for seizure activity. Today the patient was still irritable and delusional during the assessment. She is adamant about leaving the hospital to handle "business." She was asked to elaborate about her "business", her response was not logical. She had to be redirected several times to keep her on topic. She is adamant that her mental health is "stable." She denies SI/HI's and AVH's. No indications of side effects from her medication. Mental Status Exam - Vital signs Last Vital Signs Temp 97.5 F L 08/12/19 05:15 Pulse 67 08/12/19 05:15 Resp 20 08/12/19 05:15 BP 91/55 08/12/19 05:15 Pulse Ox 94 08/12/19 05:15 - Exam Narrative exam: MSE: Appearance: disheveled, in hospital attire Behavior: regular eye contact Speech: regular rate and loud tone Mood: still irritable Affect: congruent to mood Thought Process: circumstantial Thought Content: denies SI/HI's and AVH's, delusional Motor Activity: lying in bed Cognition: A/O x 3 Insight: poor Judgment: poor Assessment and Plan Impression. Unspecified Mood DO with psy features. Today the patient was still irritable and delusional during the assessment. DDx: Bipolar DO, SCAD Recommendation/Plan: Continue 1013 and Zyprexa 5 mg PO HS for mood/psyhcosis, Attempted to discuss possible metabolic side effects of Zyprexa with the patient. Baseline A1c/Lipid Panel ordered for the AM. Don't administer benzos and narcotic concurrently. Discussed propr diet and exercise with the patient reference her lipid panel, Dispo: The patient was accepted on the 5th floor (geriatric unit) for inpatient psy services. Will staff with Dr Susu Cisneros.
--- NOTE | 2019-08-12 12:25 | Discharge Summary ---
Providers - Providers Date of Admission: 08/10/19 01:10 Attending physician: TISHA ORNELAS MD 08/10/19 01:10 Consult to Physician [CONS] Routine Comment: Consulting Provider: BEENA GARCIA Physician Instructions: Reason For Exam: sz 08/10/19 07:56 Consult to Wound/ET Nurse [CONS] Routine Reason For Exam: wound eval 08/10/19 10:44 Consult to Mental Health [CONS] Routine Reason For Exam: behavioral disturbance Place consult to:: [facility] Notified:: Phone number called:: [phone] Was contact made?: Yes If yes, spoke with:: marty Time called:: 11:47 08/12/19 11:24 Consult Geriatric-Psych [CONS] Routine Consulting Provider: Reason For Exam: bipolar Primary care physician: CHIEF INFORMATION SECURITY OFFICER Hospitalization Condition: Stable Hospital course: 54-year-old woman with history of bipolar disorder. Who was brought to the hospital after she had a witnessed seizure at [facility]. Seizure was due to noncompliance with antiseizure medications. Patient received Ativan and antiepileptic drugs after which seizures seized. She reports feeling very depressed and anxious. she had been refusing her AED at [place] leading to seizure She has been counseled on improved adherence to her medications., Preventative health counseling performed for 17 minutes She was seen by neurology who recommended compliance with seizure medications. She has not expressed any suicidal ideation. She states that she will catch a case if she does not get what she wants. Therefore patient has been on 1013 -Patient remains paranoid delusional and aggressive. 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 She is convinced the nurses are trying to poison her and her sneaking pills into her drinks, and giving her the wrong pill in order to drug her, she has been refusing her meds on and off Diagnosis Status epilepticus Severe depression, bipolar and anxiety which are uncontrolled. paranoid delusions DVT prophylaxis with Lovenox She is medically optimized for transfer to in psy facility, being dc to Geripsych unit at [facility] Disposition: DC/TX-[id number] PSY HOSP/PSY UNIT Time spent for discharge: 33 mins Core Measure Documentation - Palliative Care Palliative Care/ Comfort Measures: Not Applicable - Core Measures Any of the following diagnoses?: none Exam - Physical Exam Narrative exam: General.: Appears well, no distress, nontoxic HEENT: Moist mucous membranes, extraocular muscles intact, no lymphadenopathy Neck: supple Cardiac: S1-S2 heard Lungs: clear to auscultation bilaterally Abdomen: soft , nontender, nondistended, bowel sounds positive Extremities: no edema clubbing or cyanosis Skin: She has some bruises on her lower extremities and one bruise on her nose, stated that they are from the trauma from the seizure Neurologic: no gross focal deficits Psych: Patient is sad, screaming tearful, inappropriate behavior, she is delusional and paranoid - Constitutional Vitals: Temp Pulse Resp BP Pulse Ox 97.5 F L 67 20 91/55 94 08/12/19 05:15 08/12/19 05:15 08/12/19 05:15 08/12/19 05:15 08/12/19 05:15 Plan Follow up with: MARIANGEL MAHAJAN MD [Staff Physician] - 3-5 Days PRIMARY CAREMD [Primary Care Provider] - 3-5 Days
== END 2019-08-12 12:38 | DRG 101 ==
LOC: ED 15:41 → 3A 08-10 01:10 → EEVIPCON 08-10 01:10
PROVIDERS: ADMIT Internal Medicine; ATTEND Internal Medicine
DX: G40.901 Epilepsy, unspecified, not intractable, with status epilepticus (principal); F31.9 Bipolar disorder, unspecified; F41.9 Anxiety disorder, unspecified; F22 Delusional disorders; S80.02XA Contusion of left knee, initial encounter; S00.83XA Contusion of other part of head, initial encounter; F17.210 Nicotine dependence, cigarettes, uncomplicated; F39 Unspecified mood [affective] disorder; Z91.14 Patient's other noncompliance with medication regimen; Z71.89 Other specified counseling; Y93.89 Activity, other specified; Y92.89 Other specified places as the place of occurrence of the external cause; Y99.8 Other external cause status; Z82.49 Family history of ischemic heart disease and other diseases of the circulatory system; Z83.3 Family history of diabetes mellitus
CPT/HCPCS: 36415; 70450; 80048; 80053; 80061; 80307; 80320; 82550; 83036; 83735; 85025; 85027; 87116; 96365; 96375; G0378; A9270-GY; G0480; J1630; J1650; J1953; J2060; J3486

== ENCOUNTER 2020-09-09 05:11 | Emergency (ER) | payer MEDICARE ==
--- NOTE | 2020-09-09 09:19 | Emergency Department Report ---
Blank Doc - Documentation Documentation: 55-year-old female that presents with syncopal episode with multiple abrasions, contusions and ecchymosis to face and body. 1- This initial assessment/diagnostic orders/clinical plan/ treatment(s) is/are subject to change based on pt's health status, clinical progression and re- assessment by fellow clinical providers in the ED. Further treatment and workup at subsequent clinical provers discretion. Patient/guardians urged not to elope from ED as their condition may be serious if not clinically assessed and managed. 2-labs 3-EKG 4-imaging studies
[2020-09-09 09:45] LABS: Basophils % (Auto) 0.5 % (0.0-1.8); Eosinophils # (Auto) 0.1 K/mm3 (0.0-0.4); Eosinophils % (Auto) 1.1 % (0.0-4.3); Hematocrit 34.7 % (30.3-42.9); Lymphocytes % (Auto) 20.4 % (13.4-35.0); Mean Corpuscular HGB Conc 35 % (30-34); Mean Corpuscular Volume 94 fl (79-97); Monocytes % (Auto) 9.5 % (0.0-7.3); Platelet Count 263 K/mm3 (140-440); Red Blood Count 3.71 M/mm3 (3.65-5.03); Red Cell Distribution Width 13.8 % (13.2-15.2)
[2020-09-09 09:55] LABS: INR 0.96 (0.87-1.13)
[2020-09-09 09:56] LABS: Partial Thromboplastin Time 27.8 Sec. (24.2-36.6)
[2020-09-09 10:12] LABS: Alanine Aminotransferase 13 units/L (7-56); Albumin 3.9 g/dL (3.9-5); Blood Urea Nitrogen 9 mg/dL (7-17); Hemolysis Index 2
[2020-09-09 10:13] LABS: BUN/Creatinine Ratio 13
--- NOTE | 2020-09-09 10:17 | Cat Scan Report ---
CT CERVICAL SPINE: 09/09/2020 INDICATION / CLINICAL INFORMATION: Syncope. Trauma.. COMPARISON: None available. FINDINGS: CT images of the cervical spine were obtained. Images are evaluated in the axial, coronal, and sagitt al planes. There is no evidence of acute abnormality. Reversal of cervical lordosis is centered at the C5-6 level with the patient positioned for this exam . Degenerative disc and facet changes are present in the mid and lower cervical spine. Moderate central canal narrowing is associated with diffuse disc bulging at the C4-5 level. Left-sided foraminal narr owing is present at C3-4 associated with disc osteophyte formation. CRANIOCERVICAL JUNCTION: Unremarkable. PARASPINAL STRUCTURES: Unremarkable IMPRESSION: No acute abnormality. Degenerative changes. All CT scans at this location are performed using dose reduction to ALARA by means of automated expos ure control. Signer Name: Bhavin Camilo MD Signed: 09/09/2020 10:16 AM Workstation Name: [id number]
--- NOTE | 2020-09-09 10:19 | Cat Scan Report ---
CT BRAIN: 09/09/2020 INDICATION / CLINICAL INFORMATION: syncope. Trauma COMPARISON: 08/09/2019 FINDINGS: BRAIN/INTRACRANIAL STRUCTURES: Unenhanced CT images of the brain demonstrate no evidence of acute int racranial abnormality. Ventricles and sulci are within normal limits of size and shape for a patient of this age. Chronic encephalomalacia of the right anterolateral temporal lobe is noted, unchanged when compared t o prior exam. There is no evidence of acute ischemic injury, hemorrhage, or mass. There are no abnormal extra-axial fluid collections. Atherosclerotic vascular calcifications are present in the distal internal carotid arteries and verte bral arteries. EXTRACRANIAL STRUCTURES: Unremarkable. IMPRESSION: No acute abnormality. Chronic right temporal lobe encephalomalacia. All CT scans at this location are performed using dose reduction to ALARA by means of automated expos ure control. Signer Name: Bhavin Camilo MD Signed: 09/09/2020 10:18 AM Workstation Name: [id number]
[2020-09-09] MEDS ORDERED: POTASSIUM CHLORIDE ER 20 MEQ TAB PO ONE ×2 (10:25→12:35)
[2020-09-09] MEDS ORDERED: HYDROcodone/ACETAMINOPHEN 10-325MG TAB PO ONE (10:25)
--- NOTE | 2020-09-09 10:26 | Cat Scan Report ---
FACIAL CT 09/09/2020 HISTORY: Trauma. Syncope. FINDINGS: CT images of the facial bones were obtained. Images are evaluated in the axial, coronal, an d sagittal planes. There is a downward displaced fracture of the right orbital floor, associated with prominent soft tis chaim thickening extending from the lower portion of the orbital floor into the upper aspect of the rig ht maxillary sinus. The soft tissue is presumably related to the acute fracture,. There is no evidence of downward herniation of intraorbital contents. Inferior rectus muscle is displ aced upward somewhat by the soft tissue associated with the fracture. There is some irregularity seen involving the inferior nasal spine, at the base of the nose. Nasal bones themselves are intact. Disr uption of the inferior nasal spine can occur as an isolated posttraumatic fracture, and would need to be correlated with focal point tenderness to determine the acuity and significance. IMPRESSION: Right orbital fracture as described above. Possible acute disruption of inferior nasal spine. All CT scans at this location are performed using dose reduction to ALARA by means of automated expos ure control. Signer Name: Bhavin Camilo MD Signed: 09/09/2020 10:26 AM Workstation Name: [id number]
[2020-09-09] MEDS ORDERED: HYDROcodone/ACETAMINOPHEN 10-325MG TAB ONE (12:34)
--- NOTE | 2020-09-09 12:44 | XRay Report ---
LEFT HUMERUS 4 VIEWS INDICATION / CLINICAL INFORMATION: Left arm trauma with pain. COMPARISON: None available. FINDINGS: Mildly displaced humeral neck fracture. No other significant skeletal abnormality Signer Name: Rajinder Torres MD FACR Signed: 09/09/2020 12:43 PM Workstation Name: [id number]
--- NOTE | 2020-09-09 12:45 | XRay Report ---
LUMBAR SPINE 3 VIEWS INDICATION / CLINICAL INFORMATION: pain s/p fall. COMPARISON: None available. FINDINGS: No significant skeletal abnormality. Alignment is normal. Signer Name: Rajinder Torres MD FACR Signed: 09/09/2020 12:43 PM Workstation Name: [id number]
--- NOTE | 2020-09-09 12:46 | XRay Report ---
LEFT SHOULDER 3 VIEWS INDICATION / CLINICAL INFORMATION: Fall with left shoulder trauma and pain. COMPARISON: None available. FINDINGS: Mildly displaced humeral neck fracture. There is been previous surgical change in the acromioclavicul ar joint Signer Name: Rajinder Torres MD FACR Signed: 09/09/2020 12:44 PM Workstation Name: [id number]
--- NOTE | 2020-09-09 12:47 | XRay Report ---
THORACIC SPINE 3 VIEWS INDICATION / CLINICAL INFORMATION: pain s/p fall. COMPARISON: None available. FINDINGS: No significant skeletal abnormality. Alignment is normal. Signer Name: Rajinder Torres MD FACR Signed: 09/09/2020 12:44 PM Workstation Name: [id number]
--- NOTE | 2020-09-09 12:48 | XRay Report ---
LEFT ELBOW 3 VIEWS INDICATION / CLINICAL INFORMATION: MAIN. COMPARISON: None available. FINDINGS: No significant skeletal abnormality Signer Name: Rajinder Torres MD FACR Signed: 09/09/2020 12:45 PM Workstation Name: [id number]
[2020-09-09 13:14] LABS: Amphetamine Screen,Urine Negative; Cannabinoid Screen,Urine Negative; Cocaine Screen,Urine Negative; Methadone Screen,Urine Negative; Opiate Screen,Urine Negative
[2020-09-09 13:15] LABS: Bacteria,Urine 1+ /HPF (Negative); Bilirubin,Urine NEG (Negative); Blood,Urine NEG (Negative); Color,Urine Yellow (Yellow); Protein,Urine <15 mg/dL mg/dL (Negative); RBC,Urine < 1.0 /HPF (0.0-6.0); Urobilinogen,Urine < 2.0 mg/dL (<2.0)
[2020-09-09 13:36] LABS: Benzodiazepines Screen,Urine Positive
[2020-09-09 13:54] VITALS: BP 130/97
--- NOTE | 2020-09-09 13:56 | Emergency Department Report ---
ED Syncope HPI - General Chief Complaint: Fall Stated Complaint: LEFT SHOULDER PAIN Time Seen by Provider: 09/09/20 09:03 Source: patient, RN notes reviewed Exam Limitations: no limitations - History of Present Illness Initial Comments: This is a 55-year-old female nontoxic, well nourished in appearance, no acute signs of distress presents to the ED with c/o of multiple abrasions and contusions with ecchymosis status post syncopal episode that occurred last week. Patient stated she taken Xanax and started to drink beer and had a syncopal episode to right side of face and left-sided shoulder area. Patient currently stated has decreased range of motion of left shoulder with headache. Patient otherwise denies any other injuries or trauma. Denies any visual changes or b lurry vision. Patient denies any chest pain, shortness of breath, fever, chills, nausea, vomiting, headache or stiff neck. Patient denies any allergies. Timing/Prior Episodes: other (Single episode last week) Precipitating Factors: Positive: lightheadedness Loss of Consciousness: brief (seconds) Current Symptoms: back to normal. denies: blurred vision, chest pain, diaphoresis, dizziness, headache, injury, lightheadedness, loss of bladder control, loss of bowel control, motionless, nausea, pale, shallow/rapid breathing, weak/absent pulse, weakness - Related Data Allergies/Adverse Reactions: Allergies No Known Allergies Allergy (Verified 08/09/19 16:40) Home Medications: Ambulatory Orders AtorvaSTATin [Lipitor] 40 mg PO QHS #30 tablet 08/21/19 Divalproex ER [Depakote ER] 1,000 mg PO HS #60 tablet 08/21/19 Losartan [Cozaar] 75 mg PO QDAY #45 tablet 08/21/19 Topiramate [Topamax] 100 mg PO BID #60 08/21/19 Torsemide [Demadex] 5 mg PO BID@0600,1800 #30 tablet 08/21/19 Zolpidem [Ambien] 10 mg PO QHS PRN #30 08/21/19 cloNIDine [Catapres] 0.1 mg PO QHS #30 08/21/19 hydroCHLOROthiazide [HCTZ] 12.5 mg PO QDAY #30 capsule 08/21/19 risperiDONE [RisperDAL] 1 mg PO BID #60 tablet 08/21/19 Acetaminophen/Codeine [Tylenol /Codeine # 3 tab] 1 tab PO Q6H PRN #12 tab 09/09/20 cephALEXin [Keflex] 500 mg PO Q8HR #21 cap 09/09/20 ED Review of Systems ROS: Stated complaint: LEFT SHOULDER PAIN Other details as noted in HPI Comment: All other systems reviewed and negative Constitutional: denies: chills, fever Eyes: denies: eye pain, eye discharge, vision change ENT: denies: ear pain, throat pain Respiratory: denies: cough, shortness of breath, wheezing Cardiovascular: denies: chest pain, palpitations Endocrine: no symptoms reported Gastrointestinal: denies: abdominal pain, nausea, diarrhea Genitourinary: denies: urgency, dysuria, discharge Musculoskeletal: denies: back pain, joint swelling, arthralgia Skin: denies: rash, lesions Neurological: headache. denies: weakness, paresthesias Psychiatric: denies: anxiety, depression Hematological/Lymphatic: denies: easy bleeding, easy bruising ED Past Medical Hx - Past Medical History Hx Hypertension: Yes Hx Congestive Heart Failure: No Hx Diabetes: No Hx Renal Disease: No Hx Arthritis: Yes Hx Seizures: Yes Hx Psychiatric Treatment: Yes (bipolar) Hx Asthma: No Hx COPD: No - Surgical History Hx Cholecystectomy: No Hx Appendectomy: No - Social History Smoking Status: Never Smoker Substance Use Type: None - Medications Home Medications: Home Medications Medication Instructions Recorded Confirmed Last Taken Type AtorvaSTATin [Lipitor] 40 mg PO QHS #30 tablet 08/21/19 Unknown Rx Divalproex ER [Depakote ER] 1,000 mg PO HS #60 tablet 08/21/19 Unknown Rx Losartan [Cozaar] 75 mg PO QDAY #45 tablet 08/21/19 Unknown Rx Topiramate [Topamax] 100 mg PO BID #60 08/21/19 Unknown Rx Torsemide [Demadex] 5 mg PO BID@0600,1800 #30 tablet 08/21/19 Unknown Rx Zolpidem [Ambien] 10 mg PO QHS PRN #30 08/21/19 Unknown Rx cloNIDine [Catapres] 0.1 mg PO QHS #30 08/21/19 Unknown Rx hydroCHLOROthiazide [HCTZ] 12.5 mg PO QDAY #30 capsule 08/21/19 Unknown Rx risperiDONE [RisperDAL] 1 mg PO BID #60 tablet 08/21/19 Unknown Rx Acetaminophen/Codeine [Tylenol 1 tab PO Q6H PRN #12 tab 09/09/20 Unknown Rx /Codeine # 3 tab] cephALEXin [Keflex] 500 mg PO Q8HR #21 cap 09/09/20 Unknown Rx ED Physical Exam - General Limitations: No Limitations General appearance: alert, in no apparent distress - Head Head exam: Present: normocephalic - Expanded Head Exam Expanded Head exam: Present: contusion, general tenderness 1 - Ecchymosis 2 - Abrasion - Eye Eye exam: Present: normal appearance, PERRL, EOMI - Neck Neck exam: Present: normal inspection, full ROM. Absent: tenderness, meningismus, lymphadenopathy - Respiratory Respiratory exam: Present: normal lung sounds bilaterally. Absent: respiratory distress, wheezes, rales, rhonchi, stridor, chest wall tenderness, accessory muscle use, decreased breath sounds, prolonged expiratory - Cardiovascular Cardiovascular Exam: Present: regular rate, normal rhythm, normal heart sounds. Absent: bradycardia, tachycardia, irregular rhythm, systolic murmur, diastolic murmur, rubs, gallop - GI/Abdominal GI/Abdominal exam: Present: soft, normal bowel sounds. Absent: distended, tenderness, guarding, rebound, rigid, diminished bowel sounds - Extremities Exam Extremities exam: Present: tenderness, normal capillary refill. Absent: joint swelling - Expanded Upper Extremity Exam Left General: Present: normal inspection Shoulder Exam: Present: tenderness, abrasion. Absent: swelling, laceration, ecchymosis, deformity, crepidus, dislocation, erythema, tenderness over AC joint Upper Arm exam: Present: full ROM, tenderness, abrasion, ecchymosis. Absent: swelling, laceration, deformity, crepidus, dislocation, erythema Elbow exam: Present: full ROM, tenderness, swelling, ecchymosis. Absent: abrasion, laceration, deformity, crepidus, dislocation, erythema, effusion, pain w/ pronation/supination, tenderness over radial head Forearm Wrist exam: Present: normal inspection, full ROM. Absent: tenderness, swelling, abrasion, laceration, ecchymosis, deformity, crepidus, dislocation, erythema, tenderness over anatomical snuff box, pain with axial thumb loading Hand Wrist exam: Present: normal inspection, full ROM. Absent: tenderness, swelling, abrasion, laceration, ecchymosis, deformity, crepidus, dislocation, erythema, amputation, nail avulsion, subungual hematoma Vascular: Present: normal capillary refill. Absent: vascular compromise (Neurovascular within normal limits) - Back Exam Back exam: Present: normal inspection, full ROM, paraspinal tenderness (Cervical, thoracic and lumbar paraspinal), vertebral tenderness (Cervical spinal). Absent: tenderness, CVA tenderness (R), CVA tenderness (L), muscle spasm, rash noted - Expanded Back Exam Expanded Back exam: Absent: saddle anesthesia Back exam: Negative Straight Leg Raising: Left, Right - Neurological Exam Neurological exam: Present: alert, oriented X3, normal gait - Expanded Neurological Exam Expanded Patient oriented to: Present: person, place, time Cranial nerves: EOM's Intact: Normal, Facial Sensation: Normal Cerebellar function: Finger to Nose: Normal Upper motor neuron: Pronator Drift: Normal, Sensory Extinction: Normal Motor strength exam: RUE: 5, LUE: 5, RLE: 5, LLE: 5 Best Eye Response (Naomi): (4) open spontaneously Best Motor Response (Naomi): (6) obeys commands Best Verbal Response (Marlow): (5) oriented Marlow Total: 15 - Psychiatric Psychiatric exam: Present: normal affect, normal mood - Skin Skin exam: Present: warm, dry, intact, normal color. Absent: rash ED Course Vital Signs 09/09/20 06:31 Temperature 98.7 F Pulse Rate 87 Respiratory 17 Rate Blood Pressure 130/97 O2 Sat by Pulse 99 Oximetry Vital Signs 09/09/20 06:31 Temperature 98.7 F Pulse Rate 87 Respiratory 17 Rate Blood Pressure 130/97 O2 Sat by Pulse 99 Oximetry - Reevaluation(s) Reevaluation #1: 09/09/20 13:59 Patient is speaking in full sentences with no signs of distress noted. ED Medical Decision Making - Lab Data Result diagrams: 09/09/20 09:30 09/09/20 09:30 Lab Results 09/09/20 09/09/20 09/09/20 Range/Units 09:30 09:30 09:30 WBC 10.0 (4.5-11.0) K/mm3 RBC 3.71 (3.65-5.03) M/mm3 Hgb 12.0 (10.1-14.3) gm/dl Hct 34.7 (30.3-42.9) % MCV 94 (79-97) fl MCH 32 (28-32) pg MCHC 35 H (30-34) % RDW 13.8 (13.2-15.2) % Plt Count 263 (140-440) K/mm3 Lymph % (Auto) 20.4 (13.4-35.0) % Hutchinson % (Auto) 9.5 H (0.0-7.3) % Eos % (Auto) 1.1 (0.0-4.3) % Baso % (Auto) 0.5 (0.0-1.8) % Lymph # (Auto) 2.0 (1.2-5.4) K/mm3 Hutchinson # (Auto) 1.0 H (0.0-0.8) K/mm3 Eos # (Auto) 0.1 (0.0-0.4) K/mm3 Baso # (Auto) 0.0 (0.0-0.1) K/mm3 Seg Neutrophils % 68.5 (40.0-70.0) % Seg Neutrophils # 6.8 (1.8-7.7) K/mm3 PT 12.9 (12.2-14.9) Sec. INR 0.96 (0.87-1.13) APTT 27.8 (24.2-36.6) Sec. Sodium 137 (137-145) mmol/L Potassium 3.3 L (3.6-5.0) mmol/L Chloride 96.4 L (98-107) mmol/L Carbon Dioxide 33 H (22-30) mmol/L Anion Gap 11 mmol/L BUN 9 (7-17) mg/dL Creatinine 0.7 (0.6-1.2) mg/dL Estimated GFR > 60 ml/min BUN/Creatinine Ratio 13 % Glucose 116 H (65-100) mg/dL Calcium 9.0 (8.4-10.2) mg/dL Magnesium (1.7-2.3) mg/dL Total Bilirubin 0.40 (0.1-1.2) mg/dL AST 15 (5-40) units/L ALT 13 (7-56) units/L Alkaline Phosphatase 94 (35-129) units/L Troponin T < 0.010 (0.00-0.029) ng/mL Total Protein 7.7 (6.3-8.2) g/dL Albumin 3.9 (3.9-5) g/dL Albumin/Globulin Ratio 1.0 % Urine Color (Yellow) Urine Turbidity (Clear) Urine pH (5.0-7.0) Ur Specific Harvey (1.003-1.030) Urine Protein (Negative) mg/dL Urine Glucose (UA) (Negative) mg/dL Urine Ketones (Negative) mg/dL Urine Blood (Negative) Urine Nitrite (Negative) Urine Bilirubin (Negative) Urine Urobilinogen (<2.0) mg/dL Ur Leukocyte Esterase (Negative) Urine WBC (Auto) (0.0-6.0) /HPF Urine RBC (Auto) (0.0-6.0) /HPF U Epithel Cells (Auto) (0-13.0) /HPF Urine Bacteria (Auto) (Negative) /HPF Urine Opiates Screen Urine Methadone Screen Ur Barbiturates Screen Ur Phencyclidine Scrn Ur Amphetamines Screen U Benzodiazepines Scrn Urine Cocaine Screen U Marijuana (THC) Screen Drugs of Abuse Note 09/09/20 09/09/20 09/09/20 Range/Units 09:30 Unknown Unknown WBC (4.5-11.0) K/mm3 RBC (3.65-5.03) M/mm3 Hgb (10.1-14.3) gm/dl Hct (30.3-42.9) % MCV (79-97) fl MCH (28-32) pg MCHC (30-34) % RDW (13.2-15.2) % Plt Count (140-440) K/mm3 Lymph % (Auto) (13.4-35.0) % Hutchinson % (Auto) (0.0-7.3) % Eos % (Auto) (0.0-4.3) % Baso % (Auto) (0.0-1.8) % Lymph # (Auto) (1.2-5.4) K/mm3 Hutchinson # (Auto) (0.0-0.8) K/mm3 Eos # (Auto) (0.0-0.4) K/mm3 Baso # (Auto) (0.0-0.1) K/mm3 Seg Neutrophils % (40.0-70.0) % Seg Neutrophils # (1.8-7.7) K/mm3 PT (12.2-14.9) Sec. INR (0.87-1.13) APTT (24.2-36.6) Sec. Sodium (137-145) mmol/L Potassium (3.6-5.0) mmol/L Chloride (98-107) mmol/L Carbon Dioxide (22-30) mmol/L Anion Gap mmol/L BUN (7-17) mg/dL Creatinine (0.6-1.2) mg/dL Estimated GFR ml/min BUN/Creatinine Ratio % Glucose (65-100) mg/dL Calcium (8.4-10.2) mg/dL Magnesium 2.10 (1.7-2.3) mg/dL Total Bilirubin (0.1-1.2) mg/dL AST (5-40) units/L ALT (7-56) units/L Alkaline Phosphatase (35-129) units/L Troponin T (0.00-0.029) ng/mL Total Protein (6.3-8.2) g/dL Albumin (3.9-5) g/dL Albumin/Globulin Ratio % Urine Color Yellow (Yellow) Urine Turbidity Slightly-cloudy (Clear) Urine pH 7.0 (5.0-7.0) Ur Specific Harvey 1.009 (1.003-1.030) Urine Protein <15 mg/dl (Negative) mg/dL Urine Glucose (UA) Neg (Negative) mg/dL Urine Ketones Neg (Negative) mg/dL Urine Blood Neg (Negative) Urine Nitrite Pos (Negative) Urine Bilirubin Neg (Negative) Urine Urobilinogen < 2.0 (<2.0) mg/dL Ur Leukocyte Esterase Sm (Negative) Urine WBC (Auto) 13.0 H (0.0-6.0) /HPF Urine RBC (Auto) < 1.0 (0.0-6.0) /HPF U Epithel Cells (Auto) 1.0 (0-13.0) /HPF Urine Bacteria (Auto) 1+ (Negative) /HPF Urine Opiates Screen Negative Urine Methadone Screen Negative Ur Barbiturates Screen Positive Ur Phencyclidine Scrn Negative Ur Amphetamines Screen Negative U Benzodiazepines Scrn Positive Urine Cocaine Screen Negative U Marijuana (THC) Screen Negative Drugs of Abuse Note Disclamer - EKG Data 09/09/20 14:02 EKG normal sinus rhythm at [address] or T wave abnormalities. Reviewed and signed by MD. - Radiology Data Referring Physician: RAJINDER CARO Patient Name: SARAH MASTERS Date of : 1965 Sex: Female Report Date: 2020-09-09 Report Status: Finalized [address] [address] XRay Report Signed Patient: SARAH MASTERS MR#: [id number] : 1965 Acct:[id number] Age/Sex: 55 / F ADM Date: 09/09/20 Loc: ED Attending Dr: Ordering Physician: RAJINDER CARO NP Date of Service: 09/09/20 Procedure(s): XR humerus 2+V LT Accession Number(s): [id number] cc: RAJINDER CARO NP Fluoro Time In Minutes: LEFT HUMERUS 4 VIEWS INDICATION / CLINICAL INFORMATION: Left arm trauma with pain. COMPARISON: None available. FINDINGS: Mildly displaced humeral neck fracture. No other significant skeletal abnormality Signer Name: Rajinder Torres MD FACR Signed: 09/09/2020 12:43 PM Workstation Name[id number] Transcribed By: MS Dictated By: Rajinder Torres MD Electronically Authenticated By: Rajinder Torres MD Signed Date/Time: 09/09/20 1243 DD/ 1242 TD/TT: Referring Physician: RAJINDER CARO Patient Name: SARAH MASTERS Date of : 1965 Sex: Female Report Date: 2020-09-09 Report Status: Finalized [address] [address] XRay Report Signed Patient: SARAH MASTERS MR#: [id number] : 1965 Acct:[id number] Age/Sex: 55 / F ADM Date: 09/09/20 Loc: ED Attending Dr: Ordering Physician: RAJINDER CARO NP Date of Service: 09/09/20 Procedure(s): XR spine lumbosacral 2-3V Accession Number(s): [id number] cc: RAJINDER CARO NP Fluoro Time In Minutes: LUMBAR SPINE 3 VIEWS INDICATION / CLINICAL INFORMATION: pain s/p fall. COMPARISON: None available. FINDINGS: No significant skeletal abnormality. Alignment is normal. Signer Name: Rajinder Torres MD FACR Signed: 09/09/2020 12:43 PM Workstation Name: [id number] Transcribed By: MS Dictated By: Rajinder Torres MD Electronically Authenticated By: Rajinder Torres MD Signed Date/Time: 09/09/20 124 DD/ 124 TD/TT: Referring Physician: RAJINDER CARO Patient Name: SAARH MASTERS Date of : 1965 Sex: Female Report Date: 2020-09-09 Report Status: Finalized [address] [address] XRay Report Signed Patient: SARAH MASTERS MR#: [id number] : 1965 Acct:[id number] Age/Sex: 55 / F ADM Date: 09/09/20 Loc: ED Attending Dr: Ordering Physician: RAJINDER CARO NP Date of Service: 09/09/20 Procedure(s): XR spine thoracic 2V Accession Number(s): [id number] cc: RAJINDER CARO NP Fluoro Time In Minutes: THORACIC SPINE 3 VIEWS INDICATION / CLINICAL INFORMATION: pain s/p fall. COMPARISON: None available. FINDINGS: No significant skeletal abnormal ity. Alignment is normal. Signer Name: Rajinder Torres MD FACR Signed: 09/09/2020 12:44 PM Workstation Name: [id number] Transcribed By: MS Dictated By: Rajinder Torres MD Electronically Authenticated By: Rajinder Torres MD Signed Date/Time: 09/09/20 124 DD/ 43 TD/TT: Referring Physician: RAJINDER CARO Patient Name: SARAH MASTERS Date of : 1965 Sex: Female Report Date: 2020-09-09 Report Status: Finalized [address] [address] XRay Report Signed Patient: SARAH MASTERS MR#: [id number] : 1965 Acct:[id number] Age/Sex: 55 / F ADM Date: 09/09/20 Loc: ED Attending Dr: Ordering Physician: RAJINDER CARO NP Date of Service: 09/09/20 Procedure(s): XR elbow 3+V LT Accession Number(s): [id number] cc: RAJINDER CARO NP Fluoro Time In Minutes: LEFT ELBOW 3 VIEWS INDICATION / CLINICAL INFORMATION: MAIN. COMPARISON: None available. FINDINGS: No significant skeletal abnormality Signer Name: Rajinder Torres MD FACR Signed: 09/09/2020 12:45 PM Workstation Name: [id number] Transcribed By: MS Dictated By: Rajinder Torres MD Electronically Authenticated By: Rajinder Torres MD Signed Date/Time: 09/09/20 1245 DD/ 1244 TD/TT: Referring Physician: RAJINDER CARO Patient Name: SARAH MASTERS Date of : 1965 Sex: Female Report Date: 2020-09-09 Report Status: Finalized [address] [address] XRay Report Signed Patient: SARAH MASTERS MR#: [id number] : 1965 Acct:[id number] Age/Sex: 55 / F ADM Date: 09/09/20 Loc: ED Attending Dr: Ordering Physician: RAJINDER CARO NP Date of Service: 09/09/20 Procedure(s): XR shoulder 2+V LT Accession Number(s): [id number] cc: RAJINDER CARO NP Fluoro Time In Minutes: LEFT SHOULDER 3 VIEWS INDICATION / CLINICAL INFORMATION: Fall with left shoulder trauma and pain. COMPARISON: None available. FINDINGS: Mildly displaced humeral neck fracture. There is been previous surgical change in the acromioclavicular joint Signer Name: Rajinder Torres MD FACR Signed: 09/09/2020 12:44 PM Workstation Name: [id number] Transcribed By: MS Dictated By: Rajinder Torres MD Electronically Authenticated By: Rajinder Torres MD Signed Date/Time: 09/09/20 1244 DD/ 1243 TD/TT: Referring Physician: RAJINDER CARO Patient Name: SARAH MASTERS Date of : 1965 Sex: Female Report Date: 2020-09-09 Report Status: Finalized [facility] [address] [place] [address] Cat Scan Report Signed Patient: SARAH MASTERS MR#: [id number] : 1965 Acct:[id number] Age/Sex: 55 / F ADM Date: 09/09/20 Loc: ED Attending Dr: Ordering Physician: RAJINDER CARO NP Date of Service: 09/09/20 Procedure(s): CT cervical spine wo con Accession Number(s): [id number] cc: RAJINDER CARO NP CT CERVICAL SPINE: 09/09/2020 INDICATION / CLINICAL INFORMATION: Syncope. Trauma.. COMPARISON: None available. FINDINGS: CT images of the cervical spine were obtained. Images are evaluated in the axial, coronal, and sagittal planes. There is no evidence of acute abnormality. Reversal of cervical lordosis is centered at the C5-6 level with the patient positioned for this exam. Degenerative disc and facet changes are present in the mid and lower cervical spine. Moderate central canal narrowing is associated with diffuse disc bulging at the C4-5 level. Left-sided foraminal narrowing is present at C3-4 associated with disc osteophyte formation. CRANIOCERVICAL JUNCTION: Unremarkable. PARASPINAL STRUCTURES: Unremarkable IMPRESSION: No acute abnormality. Degenerative changes. All CT scans at this location are performed using dose reduction to ALARA by means of automated exposure control. Signer Name: Bhavin Camilo MD Signed: 09/09/2020 10:16 AM Workstation Name: [id number] Transcribed By: AO Dictated By: Bhavin Camilo MD Electronically Authenticated By: Bhavin Camilo MD Signed Date/Time: 09/09/20 1016 DD/ 1014 TD/TT: Referring Physician: RAJINDER CARO Patient Name: SARAH MASTERS Date of : 1965 Sex: Female Report Date: 2020-09-09 Report Status: Finalized [facility] [address] [place] [id number] Cat Scan Report Signed Patient: SARAH MASTERS MR#: [id number] : 1965 Acct:[id number] Age/Sex: 55 / F ADM Date: 09/09/20 Loc: ED Attending Dr: Ordering Physician: RAJINDER CARO NP Date of Service: 09/09/20 Procedure(s): CT facial bones wo con Accession Number(s): [id number] cc: RAJINDER CARO NP FACIAL CT 09/09/2020 HISTORY: Trauma. Syncope. FINDINGS: CT images of the facial bones were obtained. Images are evaluated in the axial, coronal, and sagittal planes. There is a downward displaced fracture of the right orbital floor, associated with prominent soft tissue thickening extending from the lower portion of the orbital floor into the upper aspect of the right maxillary sinus. The soft tissue is presumably related to the acute fracture,. There is no evidence of downward herniation of intraorbital contents. Inferior rectus muscle is displaced upward somewhat by the soft tissue associated with the fracture. There is some irregularity seen involving the inferior nasal spine, at the base of the nose. Nasal bones themselves are intact. Disruption of the inferior nasal spine can occur as an isolated posttraumatic fracture, and would need to be correlated with focal point tenderness to determine the acuity and significance. IMPRESSION: Right orbital fracture as described above. Possible acute disruption of inferior nasal spine. All CT scans at this location are performed using dose reduction to ALARA by means of automated exposure control. Signer Name: Bhavin Camilo MD Signed: 09/09/2020 10:26 AM Workstation Name: [id number] Transcribed By: JOSEPH Dictated By: Bhavin Camilo MD Electronically Authenticated By: Bhavin Camilo MD Signed Date/Time: 09/09/20 1026 DD/ 1018 TD/TT: Referring Physician: RAJINDER CARO Patient Name: SARAH MASTERS Date of : 1965 Sex: Female Report Date: 2020-09-09 Report Status: Finalized [facility] [address] [place] [address] Cat Scan Report Signed Patient: SARAH MASTERS MR#: [id number] : 1965 Acct:[id number] Age/Sex: 55 / F ADM Date: 09/09/20 Loc: ED Attending Dr: Ordering Physician: RAJINDER CARO NP Date of Service: 09/09/20 Procedure(s): CT head/brain wo con Accession Number(s): [id number] cc: RAJINDER CARO NP CT BRAIN: 09/09/2020 INDICATION / CLINICAL INFORMATION: syncope. Trauma COMPARISON: 08/09/2019 FINDINGS: BRAIN/INTRACRANIAL STRUCTURES: Unenhanced CT images of the brain demonstrate no evidence of acute intracranial abnormality. Ventricles and sulci are within normal limits of size and shape for a patient of this age. Chronic encephalomalacia of the right anterolateral temporal lobe is noted, unchanged when compared to prior exam. There is no evidence of acute ischemic injury, hemorrhage, or mass. There are no abnormal extra-axial fluid collections. Atherosclerotic vascular calcifications are present in the distal internal carotid arteries and vertebral arteries. EXTRACRANIAL STRUCTURES: Unremarkable. IMPRESSION: No acute abnormality. Chronic right temporal lobe encephalomalacia. All CT scans at this location are performed using dose reduction to ALARA by means of automated exposure control. Signer Name: Bhavin Camilo MD Signed: 09/09/2020 10:18 AM Workstation Name: [id number] Transcribed By: AO Dictated By: Bhavin Camilo MD Electronically Authenticated By: Bhavin Camilo MD Signed Date/Time: 09/09/20 1018 DD/ 1016 TD/TT: - Medical Decision Making 55-year-old female that presents with right orbital fracture, left shoulder fracture, syncopal episode and UTI. Patient is stable and was examined by me. Patient is notified of the results with no questions noted by the patient. Patient received shoulder immobilizer. Patient was referred to orthopedic docto r and primary care doctor. Patient be discharged with Keflex. Patient stated pain is under control. EKG has been obtained. Patient was instructed to follow-up with a primary care and orthopedic doctor in 3-5 days or if symptoms worsen and continue return to emergency room as soon as possible. At time of discharge, the patient does not seem toxic or ill in appearance. No acute signs of distress noted. Patient agrees to discharge treatment plan of care. No further questions noted by the patient. Critical care attestation.: If time is entered above; I have spent that time in minutes in the direct care of this critically ill patient, excluding procedure time. ED Disposition Clinical Impression: Multiple abrasions Syncope Qualifiers: Syncope type: unspecified Qualified Code(s): R55 - Syncope and collapse Shoulder fracture, left Qualifiers: Encounter type: initial encounter Fracture type: closed Qualified Code(s): S42.92XA - Fracture of left shoulder girdle, part unspecified, initial encounter for closed fracture Strain of left upper arm Qualifiers: Encounter type: initial encounter Qualified Code(s): S46.912A - Strain of unspecified muscle, fascia and tendon at shoulder and upper arm level, left arm, initial encounter Cervical strain, acute Qualifiers: Encounter type: initial encounter Qualified Code(s): S16.1XXA - Strain of muscle, fascia and tendon at neck level, initial encounter Low back strain Qualifiers: Encounter type: initial encounter Qualified Code(s): S39.012A - Strain of muscle, fascia and tendon of lower back, initial encounter Orbital fracture Qualifiers: Encounter type: initial encounter Fracture type: closed Qualified Code(s): S02.85XA - Fracture of orbit, unspecified, initial encounter for closed fracture Contusion of face Qualifiers: Encounter type: initial encounter Qualified Code(s): S00.83XA - Contusion of other part of head, initial encounter UTI (urinary tract infection) Qualifiers: Urinary tract infection type: acute cystitis Hematuria presence: without hematuria Qualified Code(s): N30.00 - Acute cystitis without hematuria Disposition: TO HOME OR SELFCARE Is pt being admited?: No Does the pt Need Aspirin: No Condition: Stable Instructions: Acetaminophen; Oxycodone capsules, Orbital Floor Fracture With Entrapment, Contusion, Cervical Sprain, Muscle Strain, Lumbar Strain, How to Use a Shoulder Immobilizer, Syncope, Syncope (ED) Additional Instructions: Follow-up with a primary care and orthopedic doctor in 3-5 days or if symptoms worsen and continue return to emergency room as soon as possible. No physical activity that extremity until cleared by orthopedic doctor Prescriptions: cephALEXin [Keflex] 500 mg PO Q8HR #21 cap Acetaminophen/Codeine [Tylenol /Codeine # 3 tab] 1 tab PO Q6H PRN #12 tab PRN Reason: Pain , Severe (7-10) Referrals: PRIMARY CARE, [Primary Care Provider] - 3-5 Days DARIO ARCHER MD [Staff Physician] - 3-5 Days EASTON EAGLE MD [Staff Physician] - 3-5 Days Forms: Work/School Release Form(ED)
== END 2020-09-09 14:19 | disposition home or self-care (01) ==
LOC: ED 05:11
DX: S46.912A Strain of unspecified muscle, fascia and tendon at shoulder and upper arm level, left arm, initial encounter (principal); S16.1XXA Strain of muscle, fascia and tendon at neck level, initial encounter; S39.012A Strain of muscle, fascia and tendon of lower back, initial encounter; S42.92XA Fracture of left shoulder girdle, part unspecified, initial encounter for closed fracture; S02.85XA Fracture of orbit, unspecified, initial encounter for closed fracture; S00.83XA Contusion of other part of head, initial encounter; N39.0 Urinary tract infection, site not specified; R55 Syncope and collapse; M19.90 Unspecified osteoarthritis, unspecified site; F31.9 Bipolar disorder, unspecified; G40.909 Epilepsy, unspecified, not intractable, without status epilepticus; Z79.899 Other long term (current) drug therapy; X58.XXXA Exposure to other specified factors, initial encounter; Y93.89 Activity, other specified; Y92.89 Other specified places as the place of occurrence of the external cause; Y99.8 Other external cause status
CPT/HCPCS: 36415; 70450; 70486; 72070; 72100; 72125; 80053; 80307; 81001; 83735; 84484; 85025; 85610; 85730; 87076; 87086; 87186; 93005

== ENCOUNTER 2021-06-09 13:36 | Outpatient (CLI) | payer MEDICARE ==
--- NOTE | 2021-06-09 14:27 | XRay Report ---
LEFT HUMERUS 2 VIEW INDICATION: LEFT HUMERAL PAIN.. COMPARISON: 09/09/2020 IMPRESSION: Left humeral neck fracture has healed since 09/09/2020 exam. No acute osseous abnormalit y on today's exam. No significant DJD. Signer Name: Miky Henry Jr, MD Signed: 06/09/2021 2:22 PM Workstation Name: [id number]
--- NOTE | 2021-06-09 15:37 | XRay Report ---
LEFT SHOULDER 3 VIEWS 1403 INDICATION: LEFT SHOULDER PAIN. COMPARISON: 09/09/2020 FINDINGS: Prior humeral neck fracture has healed. Mild glenohumeral degenerative changes are seen. Iyer rgical changes are again noted with apparent resection of the distal clavicle and a screw in the scap linn. No acute fractures or dislocations are seen. Signer Name: Eliazar Cuenca MD Signed: 06/09/2021 3:33 PM Workstation Name: [id number]
== END 2021-06-09 13:37 | disposition home or self-care (01) ==
LOC: XRAY 13:36
PROVIDERS: ATTEND Orthopaedic Surgery
DX: S42.92XD Fracture of left shoulder girdle, part unspecified, subsequent encounter for fracture with routine healing (principal); M79.602 Pain in left arm; M19.012 Primary osteoarthritis, left shoulder; X58.XXXD Exposure to other specified factors, subsequent encounter

== ENCOUNTER 2022-03-21 22:15 | Emergency (ER) | payer MEDICARE ==
[2022-03-21] MEDS ORDERED: PHENobarbitaL 130 MG/ML VIAL IV ONE (22:28)
--- NOTE | 2022-03-21 22:32 | Emergency Department Report ---
ED Seizure HPI - General Stated Complaint: SEIZURE Time Seen by Provider: 03/21/22 22:27 - History of Present Illness Initial Comments: Patient is 56-year-old female with history of seizure on phenobarbital however patient stated that she does not remember the last time she took the medicine because she did not have any seizure recently. Patient brought to the emergency room via EMS from home for evaluation of 1 episode of generalized tonic-clonic seizure. EMS stated that patient was postictal when they arrived. Patient did have urinary incontinence during her episode. Patient denied any head injury. Patient is alert and oriented x3. MD Complaint: seizure -: Sudden, This evening Description of Episode: loss of consciousness, tonic-clonic movement, bladder incontinence, bowel incontinence, post-event confusion Witnessed:: Yes Trauma: No Seizure History: known seizure disorder Place: home Possible Precipitating Event: none Associated Symptoms: denies other symptoms Treatments Prior to Arrival: none - Related Data Previous Rx's Medication Instructions Recorded Last Taken Type AtorvaSTATin [Lipitor] 40 mg PO QHS #30 tablet 08/21/19 Unknown Rx Divalproex ER [Depakote ER] 1,000 mg PO HS #60 tablet 08/21/19 Unknown Rx Losartan [Cozaar] 75 mg PO QDAY #45 tablet 08/21/19 Unknown Rx Topiramate [Topamax] 100 mg PO BID #60 08/21/19 Unknown Rx Torsemide [Demadex] 5 mg PO BID@0600,1800 #30 tablet 08/21/19 Unknown Rx Zolpidem (Nf) [Ambien (Nf)] 10 mg PO QHS PRN #30 08/21/19 Unknown Rx cloNIDine [Catapres] 0.1 mg PO QHS #30 08/21/19 Unknown Rx hydroCHLOROthiazide [HCTZ] 12.5 mg PO QDAY #30 capsule 08/21/19 Unknown Rx risperiDONE [RisperDAL] 1 mg PO BID #60 tablet 08/21/19 Unknown Rx Acetaminophen/Codeine [Tylenol 1 tab PO Q6H PRN #12 tab 09/09/20 Unknown Rx /Codeine # 3 tab] cephALEXin [Keflex] 500 mg PO Q8HR #21 cap 09/09/20 Unknown Rx Allergies Allergy/AdvReac Type Severity Reaction Status Date / Time No Known Allergies Allergy Verified 08/09/19 16:40 ED Review of Systems ROS: Stated complaint: SEIZURE Other details as noted in HPI Comment: All other systems reviewed and negative Constitutional: denies: chills, fever Respiratory: denies: cough, shortness of breath, SOB with exertion, SOB at rest Cardiovascular: denies: chest pain, palpitations Gastrointestinal: denies: abdominal pain, nausea, vomiting, diarrhea, constipation, hematemesis, melena, hematochezia Musculoskeletal: denies: back pain Neurological: denies: headache, weakness, numbness, paresthesias, confusion, abnormal gait Psychiatric: denies: homicidal thoughts, suicidal thoughts ED Past Medical Hx - Past Medical History Hx Hypertension: Yes Hx Congestive Heart Failure: No Hx Diabetes: No Hx Renal Disease: No Hx Arthritis: Yes Hx Seizures: Yes Hx Psychiatric Treatment: Yes (bipolar) Hx Asthma: No Hx COPD: No - Surgical History Hx Cholecystectomy: No Hx Appendectomy: No - Social History Smoking Status: Never Smoker Substance Use Type: None - Medications Home Medications: Home Medications Medication Instructions Recorded Confirmed Last Taken Type AtorvaSTATin [Lipitor] 40 mg PO QHS #30 tablet 08/21/19 Unknown Rx Divalproex ER [Depakote ER] 1,000 mg PO HS #60 tablet 08/21/19 Unknown Rx Losartan [Cozaar] 75 mg PO QDAY #45 tablet 08/21/19 Unknown Rx Topiramate [Topamax] 100 mg PO BID #60 08/21/19 Unknown Rx Torsemide [Demadex] 5 mg PO BID@0600,1800 #30 tablet 08/21/19 Unknown Rx Zolpidem (Nf) [Ambien (Nf)] 10 mg PO QHS PRN #30 08/21/19 Unknown Rx cloNIDine [Catapres] 0.1 mg PO QHS #30 08/21/19 Unknown Rx hydroCHLOROthiazide [HCTZ] 12.5 mg PO QDAY #30 capsule 08/21/19 Unknown Rx risperiDONE [RisperDAL] 1 mg PO BID #60 tablet 08/21/19 Unknown Rx Acetaminophen/Codeine [Tylenol 1 tab PO Q6H PRN #12 tab 09/09/20 Unknown Rx /Codeine # 3 tab] cephALEXin [Keflex] 500 mg PO Q8HR #21 cap 09/09/20 Unknown Rx ED Physical Exam - General General appearance: alert, in no apparent distress - Head Head exam: Present: atraumatic, normocephalic, normal inspection - Eye Eye exam: Present: normal appearance - ENT ENT exam: Present: normal exam, normal orophraynx, mucous membranes moist - Neck Neck exam: Present: normal inspection, full ROM. Absent: tenderness, meningismus - Respiratory Respiratory exam: Present: normal lung sounds bilaterally - Cardiovascular Cardiovascular Exam: Present: regular rate, normal rhythm, normal heart sounds - GI/Abdominal GI/Abdominal exam: Present: soft, normal bowel sounds. Absent: distended, tenderness, guarding, rebound, rigid, organomegaly, mass, bruit, pulsatile mass, hernia - Extremities Exam Extremities exam: Present: normal inspection, full ROM, normal capillary refill. Absent: tenderness, pedal edema, joint swelling, calf tenderness - Back Exam Back exam: Present: normal inspection, full ROM. Absent: CVA tenderness (R), CVA tenderness (L) - Neurological Exam Neurological exam: Present: alert, oriented X3, CN II-XII intact, normal gait, reflexes normal. Absent: motor sensory deficit - Psychiatric Psychiatric exam: Present: normal mood. Absent: homicidal ideation, suicidal ideation - Skin Skin exam: Present: warm, intact, normal color ED Course Vital Signs 03/21/22 03/21/22 22:35 22:45 Blood Pressure 163/106 O2 Sat by Pulse 97 97 Oximetry ED Medical Decision Making - Lab Data Result diagrams: 03/21/22 22:40 03/21/22 22:40 - Medical Decision Making Patient is 56-year-old female with history of seizure on phenobarbital however patient stated that she does not remember the last time she took the medicine because she did not have any seizure recently. Patient brought to the emergency room via EMS from home for evaluation of 1 episode of generalized tonic-clonic seizure. EMS stated that patient was postictal when they arrived. Patient did have urinary incontinence during her episode. Patient denied any head injury. Patient is alert and oriented x3. Patient remained stable in the ER with a stable vital sign. No seizure activity observed. Labs reviewed and is unremarkable. Patient received phenobarbital 130 mg IV. Patient given prescription for phenobarbital and advised to follow- up with her neurologist in the next 2 to 3 days and to return to the ER if she develop any symptoms. Critical care attestation.: If time is entered above; I have spent that time in minutes in the direct care of this critically ill patient, excluding procedure time. ED Disposition Clinical Impression: Seizure Disposition: 01 HOME / SELF CARE / HOMELESS Is pt being admited?: No Condition: Stable Instructions: Seizure, Adult Referrals: PRIMARY CARE, [Primary Care Provider] - 3-5 Days SHARRI PEDROZA MD [Referring] - 3-5 Days
[2022-03-21 23:09] LABS: Hemoglobin 14.9 gm/dl (10.1-14.3); Mean Corpuscular HGB Conc 33 % (30-34); Mean Corpuscular Volume 94 fl (79-97); Platelet Count 273 K/mm3 (140-440); Red Blood Count 4.79 M/mm3 (3.65-5.03); Red Cell Distribution Width 14.2 % (13.2-15.2)
[2022-03-21 23:23] LABS: Alanine Aminotransferase 45 units/L (7-56); Albumin 4.3 g/dL (3.9-5); Blood Urea Nitrogen 13 mg/dL (7-17); Calcium 10.1 mg/dL (8.4-10.2); Hemolysis Index 8
[2022-03-21 23:26] LABS: BUN/Creatinine Ratio 19; Bilirubin,Direct < 0.2 mg/dL (0-0.2)
[2022-03-21] MEDS ORDERED: POTASSIUM CHLORIDE ER 20 MEQ TAB PO ONE (23:53)
[2022-03-22 00:22] LABS: Bacteria,Urine 1+ /HPF (Negative); Bilirubin,Urine NEG (Negative); Blood,Urine SM (Negative); Color,Urine Yellow (Yellow); Hyaline Casts,Urine 1 /LPF; Mucus,Urine FEW /HPF; Urobilinogen,Urine < 2.0 mg/dL (<2.0)
[2022-03-22 00:25] LABS: Protein,Urine >500 mg/dL (Negative)
[2022-03-22 00:30] LABS: Amphetamine Screen,Urine PRESUMPTIVE NEGATIVE; Benzodiazepines Screen,Urine PRESUMPTIVE POSITIVE; Cannabinoid Screen,Urine PRESUMPTIVE NEGATIVE; Cocaine Screen,Urine PRESUMPTIVE NEGATIVE; Methadone Screen,Urine PRESUMPTIVE NEGATIVE; Opiate Screen,Urine PRESUMPTIVE NEGATIVE
[2022-03-22 02:07] LABS: Basophils % (Manual) 0 % (0.0-1.8); Total Cells Counted 100
[2022-03-22 02:08] LABS: Platelet Estimate Consistent w Auto; RBC Morphology Normal
[2022-03-22 02:54] VITALS: BP 128/83
== END 2022-03-22 03:06 | disposition home or self-care (01) ==
LOC: EEVIPCON 22:15 → ED 22:15
DX: R56.9 Unspecified convulsions (principal); I10 Essential (primary) hypertension; M19.90 Unspecified osteoarthritis, unspecified site; F31.9 Bipolar disorder, unspecified; Z79.899 Other long term (current) drug therapy
CPT/HCPCS: 36415; 80048; 80076; 80307; 81001; 85007; 85025; 96374; 99283; J2560; 80320; G0480